=== PATIENT | female | born 1950 | race Caucasian/White ===

== ENCOUNTER 2020-07-31 08:39 | Outpatient (REF) | payer MEDICARE, SELFPAY ==
[2020-07-31 10:11] LABS: MANUAL DIFF FLAG NO
[2020-07-31 10:26] LABS: Basophils Percent Auto 0.6 % (0-2); Eosinophils Absolute Auto 0.2 X10*3/uL (0.0-0.4); Eosinophils Percent Auto 3.5 % (0-4); Hematocrit 32.5 % (37-47); Hemoglobin 9.6 g/dl (12.0-16.0); Imm Gran Abs Auto 0.02 X10*3/uL (0.00-0.03); Imm Gran Pct Auto 0.3 % (0.0-0.4); Lymphocytes Absolute Auto 1.4 X10*3/uL (1.2-4.9); Mean Corpuscular HGB Conc 29.5 g/dl (31.0-35.0); Mean Corpuscular Hemoglobin 27.1 pg (27.0-33.0); Mean Corpuscular Volume 91.8 fL (80-98); Mean Platelet Volume 10.2 fL (9.4-12.3); Monocytes Absolute Auto 0.6 X10*3/uL (0.1-1.2); Monocytes Percent Auto 8.7 % (2-11); Neutrophils Absolute Auto 4.6 X10*3/uL (2.0-8.3); Neutrophils Percent Auto 66.9 % (45-73); Platelet Count 256 X10*3/uL (160-400); Red Blood Count 3.54 X10*6/uL (4.20-5.50); Red Cell Distribution Width 14.3 % (11.0-16.0); White Blood Count 6.8 X10*3/uL (4.8-10.8)
[2020-07-31 10:36] LABS: Urine Cytology See Pathology rpt
[2020-07-31 10:55] LABS: Glucose Urine UA NEG (NEG); Leukocyte Esterase Urine TRACE (NEG); Nitrite Urine NEG (NEG); Urine Blood NEG (NEG); Urine Ketones NEG (NEG); Urine Protein NEG (NEG-TRACE)
[2020-07-31 10:58] LABS: Alanine Aminotransferase 11 U/L (0-31); Albumin Level 3.4 g/dL (3.5-5.0); Alkaline Phosphatase 68 U/L (39-117); Anion Gap 11 (12-20); Appearance Urine HAZY; Aspartate Amino Transferase 15 U/L (5-31); Bilirubin Total 0.4 mg/dL (0.0-1.0); Blood Urea Nitrogen 16 mg/dL (9-16); Calcium 8.3 mg/dL (8.4-10.2); Carbon Dioxide 29 mmol/L (22-29); Chloride 106 mmol/L (96-108); Cholesterol 208 mg/dL; Color Urine YELLOW; Estimated Glomerular Filt Rate > 60; Glucose Fasting 82 mg/dL (60-99); HDL Cholesterol 43 mg/dL; LDL Cholesterol Calculated 147 mg/dl; Potassium 4.5 mmol/l (3.3-5.1); Sodium 141 mmol/L (135-145); Total Protein 6.2 g/dL (6.5-8.0); Triglycerides 92 mg/dL
[2020-07-31 11:14] LABS: Bacteria Urine TRACE /LPF; RBC Urine 0-2 /HPF (0); Squamous Epithelial Cell Urine 1+ /LPF; WBC Urine 0-2 /HPF (0-4)
[2020-07-31 11:23] LABS: Free T4 (Free Thyroxine) 1.41 ng/dL (0.71-1.85); Thyroid Stimulating Hormone 0.76 uIU/mL (0.32-4.0); Vitamin D 25-OH Total 30.5 ng/mL (>30)
== END 2020-07-31 08:40 | disposition home or self-care (01) ==
LOC: HO.10HDL 08:39
PROVIDERS: Visit Provider Internal Medicine
DX: E78.5 Hyperlipidemia, unspecified (principal); E03.9 Hypothyroidism, unspecified; I49.9 Cardiac arrhythmia, unspecified; E66.3 Overweight; D64.9 Anemia, unspecified; R31.21 Asymptomatic microscopic hematuria; E55.9 Vitamin D deficiency, unspecified
CPT/HCPCS: 36415; 80053; 80061; 81001; 82306; 84439; 84443; 85025; 87086; 87147; 88112

== ENCOUNTER 2020-08-28 10:42 | Outpatient (REF) | payer MEDICARE, SELFPAY ==
--- NOTE | 2020-08-28 10:43 | XR_ITS ---
EXAMINATION: XR KNEE STANDING, BILATERAL XR KNEE, RIGHT CLINICAL INFORMATION: Pain. COMPARISON: None TECHNIQUE: AP bilateral knee. Right knee 2 views. FINDINGS: AP BILATERAL KNEE: There is loss of medial and lateral compartment joint space of both knees with meniscal calcification. There is mild periarticular spurring in the medial and lateral compartment of the left knee and lateral compartment of the right knee. No loose body seen. There is no fracture. RIGHT KNEE: There is subluxed patella laterally to the right with moderate lateral and suprapatellar spurring. There is minimal suprapatellar joint effusion. No loose body seen. XR/XR knee RT 2V IMPRESSION: Advanced degenerative arthritic changes in the tricompartments of the right knee with meniscal calcification. No loose bodies or fracture seen. Suspect small suprapatellar joint effusion. Moderate degenerative changes medial and lateral compartment left knee.
--- NOTE | 2020-08-28 10:43 | XR_ITS ---
EXAMINATION: XR KNEE STANDING, BILATERAL XR KNEE, RIGHT CLINICAL INFORMATION: Pain. COMPARISON: None TECHNIQUE: AP bilateral knee. Right knee 2 views. FINDINGS: AP BILATERAL KNEE: There is loss of medial and lateral compartment joint space of both knees with meniscal calcification. There is mild periarticular spurring in the medial and lateral compartment of the left knee and lateral compartment of the right knee. No loose body seen. There is no fracture. RIGHT KNEE: There is subluxed patella laterally to the right with moderate lateral and suprapatellar spurring. There is minimal suprapatellar joint effusion. No loose body seen. XR/XR knee standing BI IMPRESSION: Advanced degenerative arthritic changes in the tricompartments of the right knee with meniscal calcification. No loose bodies or fracture seen. Suspect small suprapatellar joint effusion. Moderate degenerative changes medial and lateral compartment left knee.
== END 2020-08-28 10:43 | disposition home or self-care (01) ==
LOC: HO.HOSX 10:42
PROVIDERS: PCP Internal Medicine; Referring Provider Internal Medicine; Visit Provider Orthopaedic Surgery
DX: M17.0 Bilateral primary osteoarthritis of knee (principal); M25.569 Pain in unspecified knee; M11.20 Other chondrocalcinosis, unspecified site
CPT/HCPCS: 20610; 73560; 73565; 99202; J1100

== ENCOUNTER 2020-09-21 10:23 | Outpatient (REF) | payer MEDICARE, SELFPAY ==
--- NOTE | 2020-09-21 10:27 | MM_ITS ---
EXAMINATION: MM SCREENING DIGITAL BREAST TOMOSYNTHESIS, BILATERAL CLINICAL INFORMATION: Screening. Asymptomatic. The lifetime risk of breast cancer based on the Tyrer-Cuzick Model is 6%. COMPARISON: Mammography: 09/17/2019, 09/11/2018, 08/28/2017 TECHNIQUE: Digital breast tomosynthesis is performed in both the craniocaudal and mediolateral oblique views along with computer-aided detection (CAD). Synthesized 2D images are generated from the tomosynthesis. FINDINGS: There are scattered areas of fibroglandular density (ACR BI-RADS breast composition Category b). There are no significant masses, abnormal calcifications, or other abnormalities. There is a stable 6 mm nodular asymmetry 6:00 left breast. A few scattered benign coarse calcifications are again seen in each breast. No significant changes. MM/MM tomosynthesis screening BI IMPRESSION: No significant changes from prior studies. ASSESSMENT: BI-RADS 2: Benign RECOMMENDATION: Routine annual mammography screening. This patient's information was entered into a reminder system with a target due date for their next mammogram.
== END 2020-09-21 10:24 | disposition home or self-care (01) ==
LOC: HO.MAMMO 10:23
PROVIDERS: PCP Internal Medicine; Visit Provider Internal Medicine
DX: Z12.31 Encounter for screening mammogram for malignant neoplasm of breast (principal)
CPT/HCPCS: 77063; 77067

== ENCOUNTER 2020-11-28 09:10 | Outpatient (REF) | payer MEDICARE, SELFPAY ==
[2020-11-28 10:13] LABS: MANUAL DIFF FLAG NO
[2020-11-28 10:17] LABS: Basophils Percent Auto 0.6 % (0-2); Eosinophils Absolute Auto 0.2 X10*3/uL (0.0-0.4); Eosinophils Percent Auto 3.8 % (0-4); Hematocrit 32.8 % (37-47); Hemoglobin 9.4 g/dl (12.0-16.0); Imm Gran Abs Auto 0.02 X10*3/uL (0.00-0.03); Imm Gran Pct Auto 0.3 % (0.0-0.4); Lymphocytes Absolute Auto 1.4 X10*3/uL (1.2-4.9); Lymphocytes Percent Auto 22.4 % (20-40); Mean Corpuscular HGB Conc 28.7 g/dl (31.0-35.0); Mean Corpuscular Hemoglobin 24.5 pg (27.0-33.0); Mean Corpuscular Volume 85.4 fL (80-98); Mean Platelet Volume 10.3 fL (9.4-12.3); Monocytes Absolute Auto 0.6 X10*3/uL (0.1-1.2); Monocytes Percent Auto 9.1 % (2-11); Neutrophils Percent Auto 63.8 % (45-73); Platelet Count 251 X10*3/uL (160-400); Red Blood Count 3.84 X10*6/uL (4.20-5.50); Red Cell Distribution Width 16.7 % (11.0-16.0); White Blood Count 6.2 X10*3/uL (4.8-10.8)
[2020-11-28 10:39] LABS: Glucose Urine UA NEG (NEG); Leukocyte Esterase Urine TRACE (NEG); Nitrite Urine NEG (NEG); PH 6.5 (5.0-8.0); UACC Culture Trigger YES; Urine Blood NEG (NEG); Urine Ketones NEG (NEG); Urine Protein NEG (NEG-TRACE)
[2020-11-28 10:43] LABS: Appearance Urine HAZY; Color Urine YELLOW
[2020-11-28 10:48] LABS: Alanine Aminotransferase 13 U/L (0-31); Albumin Level 3.5 g/dL (3.5-5.0); Alkaline Phosphatase 71 U/L (39-117); Anion Gap 11 (12-20); Aspartate Amino Transferase 16 U/L (5-31); Bilirubin Total 0.3 mg/dL (0.0-1.0); Blood Urea Nitrogen 19 mg/dL (9-16); Calcium 8.6 mg/dL (8.4-10.2); Carbon Dioxide 29 mmol/L (22-29); Chloride 108 mmol/L (96-108); Cholesterol 222 mg/dL; Estimated Glomerular Filt Rate > 60; Glucose Fasting 90 mg/dL (60-99); HDL Cholesterol 41 mg/dL; LDL Cholesterol Calculated 157 mg/dl; Potassium 4.5 mmol/L (3.3-5.1); Sodium 143 mmol/L (135-145); Total Protein 6.3 g/dL (6.5-8.0); Triglycerides 123 mg/dL
[2020-11-28 11:04] LABS: Erythrocyte Sedimentation Rate 39 MM/HR (0-20)
[2020-11-28 11:11] LABS: Free T4 (Free Thyroxine) 1.22 ng/dL (0.71-1.85); Thyroid Stimulating Hormone 0.73 uIU/mL (0.32-4.0); Vitamin D 25-OH Total 27.5 ng/mL (>30)
[2020-11-28 11:40] LABS: Bacteria Urine 1+ /LPF; RBC Urine 0 /HPF (0); Squamous Epithelial Cell Urine 2+ /LPF; WBC Urine 0-2 /HPF (0-4)
== END 2020-11-28 09:11 | disposition home or self-care (01) ==
LOC: HO.10HDL 09:10
PROVIDERS: Visit Provider Internal Medicine
DX: I49.9 Cardiac arrhythmia, unspecified (principal); E78.00 Pure hypercholesterolemia, unspecified; M17.11 Unilateral primary osteoarthritis, right knee; E03.9 Hypothyroidism, unspecified; E66.3 Overweight; E55.9 Vitamin D deficiency, unspecified
CPT/HCPCS: 36415; 80053; 80061; 81001; 81003; 82306; 84439; 84443; 85025; 85652; 87086; 87147

== ENCOUNTER 2021-04-04 08:57 | Outpatient (REF) | payer MEDICARE, SELFPAY ==
[2021-04-04 10:06] LABS: MANUAL DIFF FLAG NO
[2021-04-04 10:14] LABS: Basophils Percent Auto 0.4 % (0-2); Eosinophils Absolute Auto 0.3 X10*3/uL (0.0-0.4); Eosinophils Percent Auto 4.5 % (0-4); Hematocrit 40.7 % (37-47); Hemoglobin 12.6 g/dl (12.0-16.0); Imm Gran Abs Auto 0.01 X10*3/uL (0.00-0.03); Imm Gran Pct Auto 0.1 % (0.0-0.4); Lymphocytes Absolute Auto 1.2 X10*3/uL (1.2-4.9); Lymphocytes Percent Auto 17.8 % (20-40); Mean Corpuscular Hemoglobin 30.1 pg (27.0-33.0); Mean Corpuscular Volume 97.1 fL (80-98); Mean Platelet Volume 10.3 fL (9.4-12.3); Monocytes Absolute Auto 0.6 X10*3/uL (0.1-1.2); Monocytes Percent Auto 8.8 % (2-11); Neutrophils Absolute Auto 4.6 X10*3/uL (2.0-8.3); Neutrophils Percent Auto 68.4 % (45-73); Platelet Count 210 X10*3/uL (160-400); Red Blood Count 4.19 X10*6/uL (4.20-5.50); Red Cell Distribution Width 13.5 % (11.0-16.0); White Blood Count 6.7 X10*3/uL (4.8-10.8)
[2021-04-04 10:17] LABS: Glucose Urine UA NEG (NEG); Leukocyte Esterase Urine 2+ (NEG); Nitrite Urine NEG (NEG); Specific Gravity - Urine 1.025 (1.005-1.025); UACC Culture Trigger YES; Urine Blood TRACE (NEG); Urine Ketones NEG (NEG); Urine Protein NEG (NEG-TRACE)
[2021-04-04 10:19] LABS: Appearance Urine HAZY; Color Urine YELLOW
[2021-04-04 10:55] LABS: Alanine Aminotransferase 9 U/L (0-31); Albumin Level 3.5 g/dL (3.5-5.0); Alkaline Phosphatase 65 U/L (39-117); Anion Gap 12 (12-20); Aspartate Amino Transferase 14 U/L (5-31); Bilirubin Total 0.5 mg/dL (0.0-1.0); Blood Urea Nitrogen 19 mg/dL (9-16); Carbon Dioxide 28 mmol/L (22-29); Chloride 107 mmol/L (96-108); Cholesterol 203 mg/dL; Estimated Glomerular Filt Rate > 60; Glucose Fasting 90 mg/dL (60-99); HDL Cholesterol 40 mg/dL; Iron 52 mcg/dL (30-160); LDL Cholesterol Calculated 142 mg/dl; Percent Iron Saturation 21 % (15-50); Potassium 4.2 mmol/L (3.3-5.1); Sodium 143 mmol/L (135-145); Total Iron Binding Capacity 242 mcg/dL (228-428); Total Protein 6.2 g/dL (6.5-8.0); Triglycerides 109 mg/dL; Unsaturated Iron Binding 190 ug/dL
[2021-04-04 11:05] LABS: Bacteria Urine 1+ /LPF; RBC Urine 0-2 /HPF (0); Squamous Epithelial Cell Urine 2+ /LPF; WBC Urine 0-2 /HPF (0-4)
[2021-04-04 11:09] LABS: Erythrocyte Sedimentation Rate 28 MM/HR (0-20)
[2021-04-04 11:10] LABS: Free T4 (Free Thyroxine) 1.44 ng/dL (0.71-1.85); Thyroid Stimulating Hormone 0.82 uIU/mL (0.32-4.0); Vitamin D 25-OH Total 28.6 ng/mL (>30)
== END 2021-04-04 08:58 | disposition home or self-care (01) ==
LOC: HO.10HDL 08:57
PROVIDERS: Visit Provider Internal Medicine
DX: I49.9 Cardiac arrhythmia, unspecified (principal); D64.9 Anemia, unspecified; E78.00 Pure hypercholesterolemia, unspecified; E55.9 Vitamin D deficiency, unspecified; R03.0 Elevated blood-pressure reading, without diagnosis of hypertension; M17.11 Unilateral primary osteoarthritis, right knee; M25.571 Pain in right ankle and joints of right foot; E03.9 Hypothyroidism, unspecified; E66.3 Overweight
CPT/HCPCS: 36415; 80053; 80061; 81001; 81003; 82306; 83540; 84439; 84443; 85025; 85652; 87086; 87147

== ENCOUNTER 2021-04-26 08:29 | Outpatient (REF) | payer MEDICARE, SELFPAY ==
--- NOTE | ~2021-04-26 | XR_ITS ---
EXAMINATION: BILATERAL KNEE STANDING. LEFT KNEE: CLINICAL INFORMATION: Pain. COMPARISON: None TECHNIQUE: Bilateral knees standing. Left knee 2 views. FINDINGS: AP bilateral knee: There is a loss of medial and lateral compartment joints is both knees with moderate periapical spurring and chondrocalcinosis medial and lateral compartments. 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 There are no loose bodies or bony erosive changes XR/XR knee standing BI IMPRESSION: Tricompartment joint space narrowing. No visible acute fracture, dislocation or subluxation seen. There is mild superior joint effusion. There is chondrocalcinosis of medial and lateral compartment. There is mild suprapatellar joint effusion.
--- NOTE | ~2021-04-26 | XR_ITS ---
EXAMINATION: BILATERAL KNEE STANDING. LEFT KNEE: CLINICAL INFORMATION: Pain. COMPARISON: None TECHNIQUE: Bilateral knees standing. Left knee 2 views. FINDINGS: AP bilateral knee: There is a loss of medial and lateral compartment joints is both knees with moderate periapical spurring and chondrocalcinosis medial and lateral compartments. 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 There are no loose bodies or bony erosive changes XR/XR knee LT 2V IMPRESSION: Tricompartment joint space narrowing. No visible acute fracture, dislocation or subluxation seen. There is mild superior joint effusion. There is chondrocalcinosis of medial and lateral compartment. There is mild suprapatellar joint effusion.
== END 2021-04-26 08:30 | disposition home or self-care (01) ==
LOC: HO.HOSX 08:29
PROVIDERS: Visit Provider Orthopaedic Surgery
DX: M11.20 Other chondrocalcinosis, unspecified site (principal); M17.12 Unilateral primary osteoarthritis, left knee
CPT/HCPCS: 20610; 73560; 73565; 99212; J1100

== ENCOUNTER 2021-09-24 09:44 | Outpatient (REF) | payer MEDICARE, SELFPAY ==
--- NOTE | ~2021-09-24 | MM_ITS ---
EXAMINATION: MM SCREENING DIGITAL BREAST TOMOSYNTHESIS, BILATERAL CLINICAL INFORMATION: Screening. Asymptomatic. The lifetime risk of breast cancer based on the Tyrer-Cuzick Model is 7%. COMPARISON: Mammography: 09/21/2020, 09/17/2019, 09/11/2018 TECHNIQUE: Digital breast tomosynthesis is performed in both the craniocaudal and mediolateral oblique views along with computer-aided detection (CAD). Synthesized 2D images are generated from the tomosynthesis. FINDINGS: There are scattered areas of fibroglandular density (ACR BI-RADS breast composition Category b). There are no significant masses, abnormal calcifications, or other abnormalities. Parenchymal pattern is similar to prior studies. No developing density. Small nodular asymmetry mid inferior left breast on MLO view is stable to decreased. The axilla and skin contours are unremarkable. MM/MM tomosynthesis screening BI IMPRESSION: No mammographic evidence of malignancy. ASSESSMENT: BI-RADS 2: Benign RECOMMENDATION: Routine annual mammography screening. This patient's information was entered into a reminder system with a target due date for their next mammogram.
== END 2021-09-24 09:45 | disposition home or self-care (01) ==
LOC: HO.MAMMO 09:44
PROVIDERS: Visit Provider Internal Medicine
DX: Z12.31 Encounter for screening mammogram for malignant neoplasm of breast (principal)
CPT/HCPCS: 77063; 77067

== ENCOUNTER 2021-10-29 10:03 | Outpatient (REF) | payer MEDICARE, SELFPAY ==
[2021-10-29 10:27] LABS: MANUAL DIFF FLAG NO
[2021-10-29 10:44] LABS: Basophils Percent Auto 0.6 % (0-2); Eosinophils Absolute Auto 0.2 X10*3/uL (0.0-0.4); Hematocrit 40.4 % (37.0-47.0); Hemoglobin 12.3 g/dl (12.0-16.0); Imm Gran Abs Auto 0.02 X10*3/uL (0.00-0.03); Imm Gran Pct Auto 0.3 % (0.0-0.4); Lymphocytes Absolute Auto 1.1 X10*3/uL (1.2-4.9); Lymphocytes Percent Auto 15.8 % (20-40); Mean Corpuscular HGB Conc 30.4 g/dl (31.0-35.0); Mean Corpuscular Hemoglobin 29.9 pg (27.0-33.0); Mean Corpuscular Volume 98.3 fL (80.0-98.0); Mean Platelet Volume 9.9 fL (9.4-12.3); Monocytes Absolute Auto 0.6 X10*3/uL (0.1-1.2); Monocytes Percent Auto 8.3 % (2-11); Neutrophils Absolute Auto 4.9 x10*3/uL (2.0-8.3); Platelet Count 206 X10*3/uL (160-400); Red Blood Count 4.11 X10*6/uL (4.20-5.50); Red Cell Distribution Width 13.7 % (11.0-16.0); White Blood Count 6.8 X10*3/uL (4.8-10.8)
[2021-10-29 11:19] LABS: Free T4 (Free Thyroxine) 1.16 ng/dL (0.71-1.85); Vitamin D 25-OH Total 26.1 ng/mL (>30)
[2021-10-29 11:36] LABS: Alanine Aminotransferase 12 U/L (0-31); Albumin Level 3.6 g/dL (3.5-5.0); Alkaline Phosphatase 66 U/L (39-117); Anion Gap 9 (12-20); Aspartate Amino Transferase 16 U/L (5-31); Bilirubin Total 0.5 mg/dL (0.0-1.0); Blood Urea Nitrogen 14 mg/dL (9-16); Carbon Dioxide 30 mmol/L (22-29); Chloride 107 mmol/L (96-108); Cholesterol 236 mg/dL; Estimated Glomerular Filt Rate > 60; Glucose Fasting 88 mg/dL (60-99); HDL Cholesterol 41 mg/dL; LDL Cholesterol Calculated 175 mg/dl; Potassium 4.1 mmol/L (3.3-5.1); Sodium 142 mmol/L (135-145); Total Protein 6.5 g/dL (6.5-8.0); Triglycerides 100 mg/dL
[2021-10-29 12:19] LABS: Uric Acid 4.9 mg/dL (2.4-5.7)
== END 2021-10-29 10:04 | disposition home or self-care (01) ==
LOC: HO.10HDL 10:03
PROVIDERS: Visit Provider Internal Medicine
DX: E78.00 Pure hypercholesterolemia, unspecified (principal); E03.9 Hypothyroidism, unspecified; E55.9 Vitamin D deficiency, unspecified; I10 Essential (primary) hypertension; M10.9 Gout, unspecified
CPT/HCPCS: 36415; 80053; 80061; 82306; 84439; 84443; 84550; 85025

== ENCOUNTER → 2022-06-03 11:05 | Outpatient (BNVA) | payer MEDICARE, SELFPAY | PROVIDERS: PCP Internal Medicine; Visit Provider Orthopaedic Surgery | DX: M11.261 Other chondrocalcinosis, right knee (principal); M17.11 Unilateral primary osteoarthritis, right knee | CPT/HCPCS: 20610; 99212; J1100 ==

== ENCOUNTER 2022-06-05 09:52 | Outpatient (REF) | payer MEDICARE, SELFPAY ==
[2022-06-05 10:22] LABS: MANUAL DIFF FLAG NO
[2022-06-05 10:43] LABS: Basophils Absolute Auto 0.1 X10*3/uL (0.0-0.2); Basophils Percent Auto 0.9 % (0-2); Eosinophils Absolute Auto 0.3 X10*3/uL (0.0-0.4); Hematocrit 39.4 % (37.0-47.0); Hemoglobin 12.2 g/dl (12.0-16.0); Imm Gran Abs Auto 0.03 X10*3/uL (0.00-0.03); Imm Gran Pct Auto 0.4 % (0.0-0.4); Lymphocytes Absolute Auto 1.7 X10*3/uL (1.2-4.9); Lymphocytes Percent Auto 23.1 % (20-40); Mean Platelet Volume 10.2 fL (9.4-12.3); Monocytes Absolute Auto 0.7 X10*3/uL (0.1-1.2); Monocytes Percent Auto 9.5 % (2-11); Neutrophils Absolute Auto 4.6 x10*3/uL (2.0-8.3); Neutrophils Percent Auto 62.1 % (45-73); Platelet Count 248 X10*3/uL (160-400); Red Blood Count 4.06 X10*6/uL (4.20-5.50); White Blood Count 7.4 X10*3/uL (4.8-10.8)
[2022-06-05 11:05] LABS: Alanine Aminotransferase 15 U/L (0-31); Albumin Level 3.6 g/dL (3.5-5.0); Alkaline Phosphatase 59 U/L (39-117); Anion Gap 14 (12-20); Aspartate Amino Transferase 17 U/L (5-31); Bilirubin Total 0.4 mg/dL (0.0-1.0); Blood Urea Nitrogen 21 mg/dL (9-16); Carbon Dioxide 27 mmol/L (22-29); Chloride 105 mmol/L (96-108); Cholesterol 220 mg/dL; Estimated Glomerular Filt Rate > 60; Glucose Fasting 78 mg/dL (60-99); HDL Cholesterol 41 mg/dL; LDL Cholesterol Calculated 153 mg/dl; Potassium 4.2 mmol/L (3.3-5.1); Sodium 142 mmol/L (135-145); Total Protein 6.6 g/dL (6.5-8.0); Triglycerides 130 mg/dL
[2022-06-05 11:19] LABS: TSH reflex Free T4 3.31 uIU/mL (0.32-4.0)
[2022-06-10 16:06] LABS: Vitamin D 25-OH, D2 <4 ng/mL; Vitamin D 25-OH, D3 27 ng/mL; Vitamin D 25-OH, Total 27 ng/mL (30-100)
== END 2022-06-05 09:53 | disposition home or self-care (01) ==
LOC: HO.10HDL 09:52
PROVIDERS: Visit Provider Nurse Practitioner Family
DX: D64.9 Anemia, unspecified (principal); E03.9 Hypothyroidism, unspecified; E55.9 Vitamin D deficiency, unspecified; E78.00 Pure hypercholesterolemia, unspecified; I10 Essential (primary) hypertension
CPT/HCPCS: 36415; 80053; 80061; 82306; 84443; 85025

== ENCOUNTER 2022-09-25 09:57 | Outpatient (REF) | payer MEDICARE, SELFPAY ==
--- NOTE | ~2022-09-25 | MM_ITS ---
EXAMINATION: MM SCREENING DIGITAL BREAST TOMOSYNTHESIS, BILATERAL CLINICAL INFORMATION: Screening. Asymptomatic. Family history breast cancer, daughter. The lifetime risk of breast cancer based on the Tyrer-Cuzick Model is 3%. COMPARISON: Mammography: 09/24/2021, 09/21/2020, 09/17/2019 TECHNIQUE: Digital breast tomosynthesis is performed in both the craniocaudal and mediolateral oblique views along with computer-aided detection (CAD). Synthesized 2D images are generated from the tomosynthesis. FINDINGS: There are scattered areas of fibroglandular density (ACR BI-RADS breast composition Category b). There are no significant masses, abnormal calcifications, or other abnormalities. Parenchymal pattern is similar to prior studies. There is no developing density or architectural abnormality. The axilla and skin contours are unremarkable. No significant changes. MM/MM tomosynthesis screening BI IMPRESSION: No mammographic evidence of malignancy. ASSESSMENT: BI-RADS 2: Benign RECOMMENDATION: Routine annual mammography screening. This patient's information was entered into a reminder system with a target due date for their next mammogram.
== END 2022-09-25 09:58 | disposition home or self-care (01) ==
LOC: HO.MAMMO 09:57
PROVIDERS: PCP Internal Medicine; Visit Provider Internal Medicine
DX: Z12.31 Encounter for screening mammogram for malignant neoplasm of breast (principal)
CPT/HCPCS: 77063; 77067

== ENCOUNTER 2022-10-08 09:10 | Outpatient (REF) | payer MEDICARE, SELFPAY ==
[2022-10-08 10:31] LABS: MANUAL DIFF FLAG NO
[2022-10-08 10:35] LABS: Basophils Absolute Auto 0.1 X10*3/uL (0.0-0.2); Basophils Percent Auto 0.8 % (0-2); Eosinophils Absolute Auto 0.3 X10*3/uL (0.0-0.4); Eosinophils Percent Auto 3.8 % (0-4); Hematocrit 39.6 % (37.0-47.0); Hemoglobin 12.3 g/dl (12.0-16.0); Imm Gran Abs Auto 0.01 X10*3/uL (0.00-0.03); Imm Gran Pct Auto 0.2 % (0.0-0.4); Lymphocytes Absolute Auto 1.2 X10*3/uL (1.2-4.9); Lymphocytes Percent Auto 18.1 % (20-40); Mean Corpuscular HGB Conc 31.1 g/dl (31.0-35.0); Mean Corpuscular Hemoglobin 30.8 pg (27.0-33.0); Mean Corpuscular Volume 99.2 fL (80.0-98.0); Mean Platelet Volume 10.1 fL (9.4-12.3); Monocytes Absolute Auto 0.5 X10*3/uL (0.1-1.2); Neutrophils Absolute Auto 4.6 x10*3/uL (2.0-8.3); Neutrophils Percent Auto 69.1 % (45-73); Platelet Count 212 X10*3/uL (160-400); Red Blood Count 3.99 X10*6/uL (4.20-5.50); Red Cell Distribution Width 14.6 % (11.0-16.0); White Blood Count 6.6 X10*3/uL (4.8-10.8)
[2022-10-08 11:00] LABS: Alanine Aminotransferase 15 U/L (0-31); Albumin Level 3.6 g/dL (3.5-5.0); Alkaline Phosphatase 65 U/L (39-117); Anion Gap 9 (12-20); Aspartate Amino Transferase 18 U/L (5-31); Bilirubin Total 0.5 mg/dL (0.0-1.0); Blood Urea Nitrogen 18 mg/dL (9-16); Calcium 8.7 mg/dL (8.4-10.2); Carbon Dioxide 30 mmol/L (22-29); Chloride 105 mmol/L (96-108); Cholesterol 211 mg/dL; Estimated Glomerular Filt Rate > 60; Glucose Fasting 84 mg/dL (60-99); HDL Cholesterol 42 mg/dL; LDL Cholesterol Calculated 139 mg/dl; Potassium 4.1 mmol/L (3.3-5.1); Sodium 140 mmol/L (135-145); Total Protein 6.3 g/dL (6.5-8.0); Triglycerides 154 mg/dL
[2022-10-08 11:05] LABS: Free T4 (Free Thyroxine) 1.14 ng/dL (0.71-1.85); Thyroid Stimulating Hormone 8.43 uIU/mL (0.32-4.0)
[2022-10-08 14:07] LABS: Appearance Urine Clear; Color Urine Yellow; Glucose Urine UA Negative (Negative); Leukocyte Esterase Urine Small (1+) (Negative); Nitrite Urine Negative (Negative); PH 6.5 (5.0-9.0); UMIC TRIGGER UACC YES; Urine Blood Negative (Negative); Urine Ketones Negative (Negative); Urine Protein Negative (Neg-Trace)
[2022-10-08 14:27] LABS: Bacteria Urine None Seen (None Seen); Hyaline Casts Urine 0-2 /LPF (0-2); RBC Urine 0-2 /HPF (0-2); UACC Culture Trigger YES; WBC Urine 0-5 /HPF (0-5)
== END 2022-10-08 09:11 | disposition home or self-care (01) ==
LOC: HO.10HDL 09:10
PROVIDERS: Visit Provider Internal Medicine
DX: E03.9 Hypothyroidism, unspecified (principal); E55.9 Vitamin D deficiency, unspecified; I10 Essential (primary) hypertension; E78.00 Pure hypercholesterolemia, unspecified
CPT/HCPCS: 36415; 80053; 80061; 81001; 81003; 82306; 84439; 84443; 85025; 87086

== ENCOUNTER 2023-02-18 09:54 | Outpatient (REF) | payer MEDICARE, SELFPAY ==
[2023-02-18 10:42] LABS: Appearance Urine Cloudy; Color Urine Yellow; Glucose Urine UA Negative (Negative); Leukocyte Esterase Urine Moderate (2+) (Negative); Nitrite Urine Negative (Negative); PH 6.5 (5.0-9.0); UMIC TRIGGER UACC YES; Urine Blood Trace (Negative); Urine Ketones Negative (Negative); Urine Protein 30 (1+) mg/dL (Neg-Trace)
[2023-02-18 10:44] LABS: Bacteria Urine 1+ (None Seen); Hyaline Casts Urine 0-2 /LPF (0-2); MANUAL DIFF FLAG NO; UACC Culture Trigger YES
[2023-02-18 10:54] LABS: Basophils Percent Auto 0.4 % (0-2); Eosinophils Absolute Auto 0.4 X10*3/uL (0.0-0.4); Eosinophils Percent Auto 5.1 % (0-4); Hematocrit 40.9 % (37.0-47.0); Hemoglobin 12.8 g/dl (12.0-16.0); Imm Gran Abs Auto 0.02 X10*3/uL (0.00-0.03); Imm Gran Pct Auto 0.3 % (0.0-0.4); Lymphocytes Percent Auto 13.9 % (20-40); Mean Corpuscular HGB Conc 31.3 g/dl (31.0-35.0); Mean Platelet Volume 10.4 fL (9.4-12.3); Monocytes Absolute Auto 0.5 X10*3/uL (0.1-1.2); Monocytes Percent Auto 7.6 % (2-11); Neutrophils Absolute Auto 5.2 x10*3/uL (2.0-8.3); Neutrophils Percent Auto 72.7 % (45-73); Platelet Count 195 X10*3/uL (160-400); Red Blood Count 4.13 X10*6/uL (4.20-5.50); Red Cell Distribution Width 14.3 % (11.0-16.0); White Blood Count 7.1 X10*3/uL (4.8-10.8)
[2023-02-18 12:42] LABS: Alanine Aminotransferase 11 U/L (0-31); Albumin Level 3.4 g/dL (3.5-5.0); Alkaline Phosphatase 61 U/L (39-117); Anion Gap 14 (12-20); Aspartate Amino Transferase 15 U/L (5-31); Bilirubin Total 0.6 mg/dL (0.0-1.0); Blood Urea Nitrogen 12 mg/dL (9-16); Calcium 8.7 mg/dL (8.4-10.2); Carbon Dioxide 26 mmol/L (22-29); Chloride 107 mmol/L (96-108); Cholesterol 231 mg/dL; Estimated Glomerular Filt Rate > 60; Glucose Fasting 78 mg/dL (60-99); HDL Cholesterol 43 mg/dL; LDL Cholesterol Calculated 173 mg/dl; Potassium 4.1 mmol/L (3.3-5.1); Sodium 143 mmol/L (135-145); Total Protein 6.3 g/dL (6.5-8.0); Triglycerides 77 mg/dL
[2023-02-18 12:52] LABS: Free T4 (Free Thyroxine) 1.08 ng/dL (0.71-1.85); Thyroid Stimulating Hormone 13.52 uIU/mL (0.32-4.0); Vitamin D 25-OH Total 34.1 ng/mL (>30)
== END 2023-02-18 09:55 | disposition home or self-care (01) ==
LOC: HO.10HDL 09:54
PROVIDERS: Visit Provider Internal Medicine
DX: E03.9 Hypothyroidism, unspecified (principal); E55.9 Vitamin D deficiency, unspecified; I10 Essential (primary) hypertension; E78.00 Pure hypercholesterolemia, unspecified; R82.90 Unspecified abnormal findings in urine
CPT/HCPCS: 36415; 80053; 80061; 81001; 82306; 84439; 84443; 85025; 87086

== ENCOUNTER 2023-09-03 08:12 | Outpatient (REF) | payer MEDICARE, SELFPAY ==
[2023-09-03 10:20] LABS: MANUAL DIFF FLAG NO
[2023-09-03 10:31] LABS: Basophils Absolute Auto 0.1 X10*3/uL (0.0-0.2); Basophils Percent Auto 0.7 % (0-2); Eosinophils Absolute Auto 0.3 X10*3/uL (0.0-0.4); Eosinophils Percent Auto 4.5 % (0-4); Hematocrit 41.6 % (37.0-47.0); Imm Gran Abs Auto 0.02 X10*3/uL (0.00-0.03); Imm Gran Pct Auto 0.3 % (0.0-0.4); Lymphocytes Absolute Auto 1.2 X10*3/uL (1.2-4.9); Mean Corpuscular HGB Conc 31.3 g/dl (31.0-35.0); Mean Corpuscular Hemoglobin 31.8 pg (27.0-33.0); Mean Corpuscular Volume 101.7 fL (80.0-98.0); Mean Platelet Volume 10.2 fL (9.4-12.3); Monocytes Absolute Auto 0.5 X10*3/uL (0.1-1.2); Monocytes Percent Auto 7.9 % (2-11); Neutrophils Absolute Auto 4.7 x10*3/uL (2.0-8.3); Neutrophils Percent Auto 68.6 % (45-73); Platelet Count 244 X10*3/uL (160-400); Red Blood Count 4.09 X10*6/uL (4.20-5.50); Red Cell Distribution Width 13.4 % (11.0-16.0); White Blood Count 6.9 X10*3/uL (4.8-10.8)
[2023-09-03 10:32] LABS: Appearance Urine Cloudy; Color Urine Yellow; Glucose Urine UA Negative (Negative); Leukocyte Esterase Urine Small (1+) (Negative); Nitrite Urine Negative (Negative); UMIC TRIGGER UACC YES; Urine Blood Trace (Negative); Urine Ketones Negative (Negative); Urine Protein Trace mg/dL (Neg-Trace)
[2023-09-03 10:54] LABS: Bacteria Urine None Seen (None Seen); Hyaline Casts Urine 0-2 /LPF (0-2); RBC Urine 0-2 /HPF (0-2); UACC Culture Trigger YES
[2023-09-03 10:56] LABS: Alanine Aminotransferase 7 U/L (0-31); Albumin Level 3.6 g/dL (3.5-5.0); Alkaline Phosphatase 65 U/L (39-117); Anion Gap 12 (12-20); Aspartate Amino Transferase 14 U/L (5-31); Bilirubin Total 0.4 mg/dL (0.0-1.0); Blood Urea Nitrogen 14 mg/dL (9-16); Calcium 9.2 mg/dL (8.4-10.2); Carbon Dioxide 29 mmol/L (22-29); Chloride 105 mmol/L (96-108); Cholesterol 228 mg/dL (<200); Estimated Glomerular Filt Rate > 60; Glucose Fasting 93 mg/dL (60-99); HDL Cholesterol 42 mg/dL (>40); LDL Cholesterol Calculated 162 mg/dL (<100); Potassium 3.8 mmol/L (3.3-5.1); Sodium 142 mmol/L (135-145); Total Protein 7.2 g/dL (6.5-8.0); Triglycerides 120 mg/dL (<150)
[2023-09-03 11:18] LABS: Free T4 (Free Thyroxine) 0.76 ng/dL (0.71-1.85); Thyroid Stimulating Hormone 34.35 uIU/mL (0.32-4.0); Vitamin D 25-OH Total 30.3 ng/mL (>30)
[2023-09-03 11:21] LABS: Folate 12.7 ng/mL (> or = 4.0); Vitamin B12 485 pg/mL (200-900)
[2023-09-04 09:18] LABS: Thyroid Peroxidase Antibodies 12 IU/mL (<9)
== END 2023-09-03 08:13 | disposition home or self-care (01) ==
LOC: HO.10HDL 08:12
PROVIDERS: Visit Provider Internal Medicine
DX: E53.8 Deficiency of other specified B group vitamins (principal); E03.9 Hypothyroidism, unspecified; R79.89 Other specified abnormal findings of blood chemistry; E78.00 Pure hypercholesterolemia, unspecified; E55.9 Vitamin D deficiency, unspecified; I10 Essential (primary) hypertension; R30.0 Dysuria
CPT/HCPCS: 36415; 80053; 80061; 81001; 82306; 82607; 82746; 84439; 84443; 85025; 86376; 87086; 87147

== ENCOUNTER 2023-09-09 16:57 | Outpatient (AMB) | payer MEDICARE, SELFPAY ==
[2023-09-09 17:02] VITALS: BP 164/92; PULSE 47; O2SAT 94; BMI 28.3
--- NOTE | 2023-09-09 17:02 | MHC.PC.OV ---
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: No Accompanied by: Self / Same As Patient Allergies Sulfa (Sulfonamide Antibiotics) (SULFA(SULFONAMIDE ANTIBIOTICS)) Allergy (Unknown, Verified 10/11/24 10:48) UNKNOWN Medication List - Last Reconciled 09/09/23 by Yuri Mcgrath MD atenolol 25 mg PO DAILY cholecalciferol (vitamin D3) 25 mcg PO DAILY ferrous sulfate (Feosol) 325 mg PO BID 90 days levothyroxine (Euthyrox) 100 mcg PO QAM magnesium 400 mg PO DAILY mecobalamin (vitamin B12) 1,000 mcg PO DAILY oxybutynin chloride ER 10 mg PO DAILY 30 days Tobacco use date assessed: 09/09/23 Fall risk assessment: No Falls in past year Last assessed Fall Risk: 09/09/23 Dental Screening Dental Screen Date: 09/09/23 Did you have a dental visit in the last 12 months?: Yes Did you have a dental problem in the last 6 months where you did not have access to dental care?: No Was dental information given to patient?: Patient has dentist HPI Physical exam HPI Details Patient comes in today for her annual physical examination States that she feels okay She denies any headaches or dizziness Denies any chest pains, no SOB No nausea/vomiting, no abdominal pain No change in bowel habits noted Denies any acute urinary symptoms Had her follow up labs done last week - to discuss her results Had her annual mammogram last done on 09/25/22; her next one is scheduled on 10/02/23 She has declined colonoscopy in the past but had a negative Cologuard back on 08/22/2020 and states that she just had a repeat Cologuard done a couple of weeks ago - test was reportedly negative as well She no longer keeps up with her annual pap smear and gynecology exam, based on her age PFSH Medical History Rah's thyroiditis Overactive bladder Vitamin D deficiency Anemia Pain in right ankle and joints of right foot Elevated blood pressure reading Overweight (BMI 25.0-29.9) Primary osteoarthritis of right knee Cardiac arrhythmia Acquired hypothyroidism Pure hypercholesterolemia Surgical History History of cataract surgery Family History Father Cancer Daughter Breast cancer Social History Housing: House Alcohol intake: never Patient Tobacco Use Status: Never used Tobacco e-Cigarette/Vaping Use: Never Used Second Hand Smoke Exposure: Yes service: No Current occupational status: retired Cognitive needs: No Hearing needs: No Vision needs: Yes (Glasses) Questionnaire PHQ-9 Over the last 2 weeks, how often have you been bothered by any of the following problems? 1. Little interest or pleasure in doing things: not at all 2. Feeling down, depressed, or hopeless: not at all 3. Trouble falling or staying asleep, or sleeping too much: not at all 4. Feeling tired or having little energy: not at all 5. Poor appetite or overeating: not at all 6. Feeling bad about yourself - or that you are a failure or have let yourself or your family down: not at all 7. Trouble concentrating on things, such as reading the newspaper or watching television: not at all 8. Moving or speaking so slowly that other people could have noticed. Or the opposite - being so fidgety or restless that you have been moving around a lot more than usual: not at all 9. Thoughts that you would be better off or of hurting yourself in some way: not at all Total score: 0 Depression Screening Interpretation: Negative Depression Screening Done: Yes 12904 - PHQ-9 Billing: Yes Source: Developed by Drs. Marv Yao, Dolores Escalante, Joseph Adams and colleagues, with an educational keshav from [employer]. Thrive Questionnaire Date Thrive assessed: 09/09/23 I am a: Patient What is your living situation today?: I have a steady place to live Within the past 12 months, did the food you bought not last and you didn't have the money to get more?: Never true Within the past 12 months, did you worry whether your food would run out before you got money to buy more?: Never true Do you have trouble paying for medicines?: No Do you have trouble getting transportation to medical appointments?: No Do you have trouble paying your heating and electricity bill?: No Do you have trouble taking care of your child, family member or friend?: No Do you have trouble with day-to-day activities such as bathing, preparing meals, shopping, managing finances, etc.?: No Are you currently unemployed and looking for a job?: No Are you interested in more education?: No Please select the resources that you would like help with: None Currently or been in a relationship where the following occur: no concerns reported AUDIT C Alcohol Use Questionnaire (AUDIT-C) 1. How often do you have a drink containing alcohol?: Never 3. How often do you have six or more drinks on one occasion?: Never Total Score: 0 Score Reviewed/Action Taken: Yes BHAVANI-7 AMB Questionnaire BHAVANI-7 Date BHAVANI - 7 assessed: 02/25/23 Source: Developed by Drs. Marv Yao, Dolores Escalante, Joseph Adams and colleagues, with an educational keshav from [employer]. Review of Systems Const Denies chills, Denies fatigue, Denies fever(s) and Denies headache(s) Eyes Denies blurry vision, Denies change in vision, Denies irritation and Denies itchy eyes ENT Denies dysphagia, Denies dizziness, Denies headache(s), Denies neck pain and Denies sore throat Card Denies chest pain, Denies palpitations and Denies dyspnea Resp Denies cough, Denies dyspnea and Denies wheezing GI Denies abdominal pain, Denies constipation, Denies dysphagia, Denies heartburn, Denies diarrhea, Denies nausea and Denies vomiting Details: increasing urinary frequency lately Denies difficulty voiding, Denies nocturia, Denies dysuria, Reports urinary incontinence (occasional urge incontinence) and Reports urinary urgency (especially in the morning) Musc Denies back pain, Denies arthralgias, Denies joint swelling, Denies muscle weakness and Denies neck pain Skin/Breast Denies breast pain, Denies breast mass, Denies change in pigmentation, Denies lesions, Denies rash and Denies unusual bruising Neuro Denies dizziness and Denies headache(s) Psych Denies anxiety and Denies depression Endo Denies fatigue and Denies palpitations Yosvany/Lymph Denies easy bruising Aller/Immun Denies itchy eyes and Denies wheezing Physical exam (Primary Care) Vital Signs: Last Vital Signs Pulse 47 L 09/09/23 17:02 BP 164/92 H 09/09/23 17:02 Pulse Ox 94 09/09/23 17:02 Oxygen Delivery Method Room Air 09/09/23 17:02 BMI result Body Mass Index 28.3 Tobacco/Smoking Status: Tobacco use Status Tobacco use date assessed 09/09/23 09/09/23 17:07 Patient Tobacco Use Status Never used Tobacco 09/09/23 17:07 e-Cigarette/Vaping Use Never Used 09/09/23 17:07 PHQ-9: PHQ-9 Score PHQ-9: Total score 0 09/10/23 05:08 Depression Screening Interpretation: Negative Thrive Assessment: Date of Thrive Assessment Date Thrive assessed 09/09/23 09/09/23 17:07 Currently or been in a relationship where the following occur: no concerns reported Results Reviewed Results Reviewed: Laboratory Tests 02/18/23 02/18/23 09/03/23 09:56 09:56 08:20 WBC 6.9 Hgb 13.0 Hct 41.6 Plt Count Sodium Potassium 3.8 Creatinine 0.80 Estimated GFR > 60 Fasting Glucose 93 Calcium 9.2 AST 14 ALT 7 Triglycerides 120 Cholesterol 231 228 H LDL Cholesterol, Calc 173 HDL Cholesterol Vitamin B12 25-OH Vitamin D Total TSH Free T4 Ur Specific [place] Urine Protein Urine Glucose (UA) Urine Blood Thyroid Peroxidase Ab 09/03/23 09/03/23 08:20 08:20 WBC Hgb Hct Plt Count 244 D Sodium 142 Potassium Creatinine Estimated GFR Fasting Glucose Calcium AST ALT Triglycerides Cholesterol LDL Cholesterol, Calc 162 H HDL Cholesterol 42 Vitamin B12 485 25-OH Vitamin D Total 30.3 L TSH 34.35 H Free T4 0.76 Ur Specific [place] 1.020 Urine Protein Trace Urine Glucose (UA) Negative Urine Blood Trace H Thyroid Peroxidase Ab 12 H Coding Level of Care Code Est Pt Prev Care >65y(09665) Diagnoses Annual physical exam Z00.00 Pure hypercholesterolemia E78.00 Acquired hypothyroidism E03.9 Cardiac arrhythmia, unspecified cardiac arrhythmia type I49.9 Arrhythmia type: unspecified cardiac arrhythmia Elevated blood pressure reading R03.0 Primary osteoarthritis of right knee M17.11 Pain in right ankle and joints of right foot M25.571 Anemia, unspecified type D64.9 Anemia type: unspecified type Vitamin D deficiency E55.9 Overactive bladder N32.81 Overweight (BMI 25.0-29.9) E66.3
== END 2023-09-09 18:05 | disposition home or self-care (01) ==
PROVIDERS: PCP Internal Medicine; Visit Provider Internal Medicine
DX: Z00.00 Encounter for general adult medical examination without abnormal findings (principal); E78.00 Pure hypercholesterolemia, unspecified; E03.9 Hypothyroidism, unspecified; I49.9 Cardiac arrhythmia, unspecified; R03.0 Elevated blood-pressure reading, without diagnosis of hypertension; M17.11 Unilateral primary osteoarthritis, right knee; M25.571 Pain in right ankle and joints of right foot; D64.9 Anemia, unspecified; E55.9 Vitamin D deficiency, unspecified; N32.81 Overactive bladder; E66.3 Overweight
CPT/HCPCS: 99499

== ENCOUNTER 2023-10-02 09:44 | Outpatient (REF) | payer MEDICARE, SELFPAY | END 2023-10-02 09:45 | disposition home or self-care (01) | LOC: HO.MAMMO 09:44 | PROVIDERS: PCP Internal Medicine; Visit Provider Internal Medicine | DX: Z12.31 Encounter for screening mammogram for malignant neoplasm of breast (principal) | CPT/HCPCS: 77063; 77067 ==

== ENCOUNTER → 2023-10-02 10:00 | Outpatient (BNV) | payer MEDICARE, SELFPAY | PROVIDERS: PCP Internal Medicine; Visit Provider Radiology Diagnostic Radiology | DX: Z12.31 Encounter for screening mammogram for malignant neoplasm of breast (principal) | CPT/HCPCS: 77063; 77067 ==

== ENCOUNTER 2024-01-07 08:44 | Outpatient (REF) | payer MEDICARE, SELFPAY ==
[2024-01-07 10:56] LABS: MANUAL DIFF FLAG NO
[2024-01-07 10:58] LABS: Appearance Urine Cloudy; Color Urine Yellow; Glucose Urine UA Negative (Negative); Leukocyte Esterase Urine Small (1+) (Negative); Nitrite Urine Negative (Negative); PH 5.5 (5.0-9.0); UMIC TRIGGER UACC YES; Urine Blood Negative (Negative); Urine Ketones Negative (Negative); Urine Protein Negative (Neg-Trace)
[2024-01-07 11:05] LABS: Basophils Percent Auto 0.6 % (0-2); Eosinophils Absolute Auto 0.3 X10*3/uL (0.0-0.4); Hematocrit 37.9 % (37.0-47.0); Hemoglobin 11.8 g/dl (12.0-16.0); Imm Gran Abs Auto 0.03 X10*3/uL (0.00-0.03); Imm Gran Pct Auto 0.4 % (0.0-0.4); Lymphocytes Absolute Auto 1.4 X10*3/uL (1.2-4.9); Lymphocytes Percent Auto 19.2 % (20-40); Mean Corpuscular HGB Conc 31.1 g/dl (31.0-35.0); Mean Corpuscular Hemoglobin 31.1 pg (27.0-33.0); Mean Platelet Volume 9.9 fL (9.4-12.3); Monocytes Absolute Auto 0.6 X10*3/uL (0.1-1.2); Monocytes Percent Auto 7.8 % (2-11); Neutrophils Absolute Auto 4.8 x10*3/uL (2.0-8.3); Platelet Count 249 X10*3/uL (160-400); Red Blood Count 3.79 X10*6/uL (4.20-5.50); Red Cell Distribution Width 14.5 % (11.0-16.0); White Blood Count 7.1 X10*3/uL (4.8-10.8)
[2024-01-07 11:18] LABS: Bacteria Urine None Seen (None Seen); Hyaline Casts Urine 0-2 /LPF (0-2); RBC Urine 0-2 /HPF (0-2); Squamous Epithelial Cell Urine >20 /HPF (0-2); UACC Culture Trigger YES
[2024-01-07 11:23] LABS: Alanine Aminotransferase 10 U/L (0-31); Albumin Level 3.5 g/dL (3.5-5.0); Alkaline Phosphatase 59 U/L (39-117); Anion Gap 9 (12-20); Aspartate Amino Transferase 15 U/L (5-31); Bilirubin Total 0.4 mg/dL (0.0-1.0); Blood Urea Nitrogen 20 mg/dL (9-16); Calcium 8.9 mg/dL (8.4-10.2); Carbon Dioxide 29 mmol/L (22-29); Chloride 108 mmol/L (96-108); Cholesterol 219 mg/dL (<200); Estimated Glomerular Filt Rate > 60; Glucose Fasting 89 mg/dL (60-99); HDL Cholesterol 43 mg/dL (>40); Iron 50 mcg/dL (30-160); LDL Cholesterol Calculated 149 mg/dL (<100); Percent Iron Saturation 23 % (15-50); Sodium 142 mmol/L (135-145); Total Iron Binding Capacity 215 mcg/dL (228-428); Total Protein 6.7 g/dL (6.5-8.0); Triglycerides 135 mg/dL (<150); Unsaturated Iron Binding 165 ug/dL
[2024-01-07 11:41] LABS: Free T4 (Free Thyroxine) 0.96 ng/dL (0.71-1.85); Thyroid Stimulating Hormone 8.05 uIU/mL (0.32-4.0); Vitamin D 25-OH Total 33.1 ng/mL (>30)
[2024-01-07 11:46] LABS: Folate 10.9 ng/mL (> or = 4.0); Vitamin B12 390 pg/mL (200-900)
== END 2024-01-07 08:45 | disposition home or self-care (01) ==
LOC: HO.10HDL 08:44
PROVIDERS: Visit Provider Internal Medicine
DX: E03.9 Hypothyroidism, unspecified (principal); E78.00 Pure hypercholesterolemia, unspecified; D50.9 Iron deficiency anemia, unspecified; I10 Essential (primary) hypertension; E55.9 Vitamin D deficiency, unspecified; E53.8 Deficiency of other specified B group vitamins; R82.90 Unspecified abnormal findings in urine
CPT/HCPCS: 36415; 80053; 80061; 81001; 82306; 82607; 82746; 83540; 84439; 84443; 85025; 87086

== ENCOUNTER 2024-01-13 12:18 | Outpatient (AMB) | payer MEDICARE, SELFPAY ==
[2024-01-13 12:33] VITALS: BP 136/90; PULSE 70; O2SAT 94; BMI 28.7
--- NOTE | 2024-01-13 12:33 | A.OFFPC_ITS ---
Vital Signs 01/13/24 12:33 Height 5 ft 8 in Weight 189 lb BMI 28.7 BP 136/90 H Blood Pressure Location Lt brachial Position Sitting Pulse 70 Pulse Source Pulse Oximeter Pulse Oximetry (%) 94 Oxygen Delivery Method Room Air Intake Visit Reasons: Rah's thyroiditis, HTN, OAB [employer] Required: No Debeaker: Not Required per policy Accompanied by: Self / Same As Patient Allergies Sulfa (Sulfonamide Antibiotics) [SULFA(SULFONAMIDE ANTIBIOTICS)] Allergy (Unknown, Verified 01/13/24 13:11) UNKNOWN Medication List - Last Reconciled 01/13/24 by Yuri Mcgrath MD atenolol 25 mg PO DAILY cholecalciferol (vitamin D3) 25 mcg PO DAILY ferrous sulfate (Feosol) 325 mg PO BID 90 days levothyroxine 125 mcg PO QAM 90 days magnesium 400 mg PO DAILY mecobalamin (vitamin B12) 1,000 mcg PO DAILY oxybutynin chloride ER 10 mg PO DAILY 30 days Tobacco use date assessed: 01/13/24 Fall risk assessment: No Falls in past year Last assessed Fall Risk: 01/13/24 Dental Screening Dental Screen Date: 01/13/24 Did you have a dental visit in the last 12 months?: Yes Did you have a dental problem in the last 6 months where you did not have access to dental care?: No Was dental information given to patient?: Patient has dentist HPI Rah's thyroiditis, HTN, OAB HPI Details Patient comes in today for her follow up visit States that she feels okay She denies any headaches or dizziness Denies any chest pains, no SOB No nausea/vomiting, no abdominal pain No change in bowel habits noted Had her follow up labs done last week - to discuss her results [facility] Medical History Overactive bladder Vitamin D deficiency Anemia Pain in right ankle and joints of right foot Elevated blood pressure reading Overweight (BMI 25.0-29.9) Primary osteoarthritis of right knee Cardiac arrhythmia Acquired hypothyroidism Pure hypercholesterolemia Surgical History History of cataract surgery Family History Father Cancer Daughter Breast cancer Social History Housing: House Alcohol intake: never Patient Tobacco Use Status: Never used Tobacco e-Cigarette/Vaping Use: Never Used Second Hand Smoke Exposure: Yes service: No Current occupational status: retired Cognitive needs: No Hearing needs: No Vision needs: Yes (Glasses) Questionnaire PHQ-9 Over the last 2 weeks, how often have you been bothered by any of the following problems? 1. Little interest or pleasure in doing things: not at all 2. Feeling down, depressed, or hopeless: not at all 3. Trouble falling or staying asleep, or sleeping too much: not at all 4. Feeling tired or having little energy: not at all 5. Poor appetite or overeating: not at all 6. Feeling bad about yourself - or that you are a failure or have let yourself or your family down: not at all 7. Trouble concentrating on things, such as reading the newspaper or watching television: not at all 8. Moving or speaking so slowly that other people could have noticed. Or the opposite - being so fidgety or restless that you have been moving around a lot more than usual: not at all 9. Thoughts that you would be better off or of hurting yourself in some way: not at all Total score: 0 Depression Screening Interpretation: Negative Depression Screening Done: Yes 18808 - PHQ-9 Billing: Yes Source: Developed by Drs. Marv Yao, Dolores Escalante, Joseph Adams and colleagues, with an educational keshav from [employer]. Thrive Questionnaire Date Thrive assessed: 01/13/24 I am a: Patient What is your living situation today?: I have a steady place to live Within the past 12 months, did the food you bought not last and you didn't have the money to get more?: Never true Within the past 12 months, did you worry whether your food would run out before you got money to buy more?: Never true Do you have trouble paying for medicines?: No Do you have trouble getting transportation to medical appointments?: No Do you have trouble paying your heating and electricity bill?: No Do you have trouble taking care of your child, family member or friend?: No Do you have trouble with day-to-day activities such as bathing, preparing meals, shopping, managing finances, etc.?: No Are you currently unemployed and looking for a job?: No Are you interested in more education?: No Please select the resources that you would like help with: None Currently or been in a relationship where the following occur: no concerns reported THRIVE Score: 0 AUDIT C Alcohol Use Questionnaire (AUDIT-C) 1. How often do you have a drink containing alcohol?: Never 3. How often do you have six or more drinks on one occasion?: Never Total Score: 0 Score Reviewed/Action Taken: Yes BHAVANI-7 AMB Questionnaire BHAVANI-7 Date BHAVANI - 7 assessed: 01/13/24 Feeling nervous, anxious, or on edge: 0 = Not at all Not being able to stop or control worryin = Not at all Worrying too much about different things: 0 = Not at all Trouble relaxin = Not at all Being so restless that it is hard to sit still: 0 = Not at all Becoming easily annoyed or irritable: 0 = Not at all Feeling afraid as if something awful might happen: 0 = Not at all Total BHAVANI-7 score (0-4 normal; 5-9 mild; 10-14 moderate; 15-21 severe): 0 Source: Developed by Drs. Marv Yao, Dolores Escalante, Joseph Adams and colleagues, with an educational keshav from [employer]. Review of Systems Const Denies chills, Denies fatigue, Denies fever(s) and Denies headache(s) ENT Denies dysphagia, Denies dizziness, Denies otalgia, Denies headache(s), Denies neck pain, Denies odynophagia and Denies sore throat Card Denies chest pain, Denies palpitations and Denies dyspnea Resp Denies cough, Denies dyspnea and Denies wheezing GI Denies abdominal pain, Denies constipation, Denies dysphagia, Denies heartburn, Denies diarrhea, Denies nausea, Denies odynophagia and Denies vomiting Denies difficulty voiding, Denies nocturia, Denies dysuria, Reports urinary incontinence (occasional urge incontinence) and Reports urinary urgency (especially in the morning) Musc Denies back pain, Denies arthralgias and Denies neck pain Skin/Breast Denies rash Neuro Denies dizziness and Denies headache(s) Psych Denies anxiety and Denies depression Endo Denies fatigue and Denies palpitations Yosvany/Lymph Denies easy bruising Aller/Immun Denies wheezing Physical exam (Primary Care) Vital Signs: Last Vital Signs Pulse 70 01/13/24 12:33 BP 136/90 H 01/13/24 12:33 Pulse Ox 94 01/13/24 12:33 Oxygen Delivery Method Room Air 01/13/24 12:33 BMI result Body Mass Index 28.7 Tobacco/Smoking Status: Tobacco use Status Tobacco use date assessed 01/13/24 01/13/24 12:34 Patient Tobacco Use Status Never used Tobacco 01/13/24 12:34 e-Cigarette/Vaping Use Never Used 01/13/24 12:34 PHQ-9: PHQ-9 Score PHQ-9: Total score 0 01/13/24 12:34 Depression Screening Interpretation: Negative Thrive Assessment: Date of Thrive Assessment Date Thrive assessed 01/13/24 01/13/24 12:34 Currently or been in a relationship where the following occur: no concerns reported Const General: no acute distress and alert HENMT Ears: TM's normal bilaterally and EAC's normal Throat: Yes posterior oropharynx normal and Yes tonsils normal (no TP congestion) Neck Neck: Yes no lymphadenopathy and Yes supple Thyroid: Thyroid normal Resp Auscultation: clear to auscultation bilaterally, no rales and no wheezes Cardio Rate: regular rate Rhythm: abnormal rhythm with ectopic beats Heart sounds: no murmurs GI Palpation (GI): Soft to palpation and nontender Auscultation: normal bowel sounds General: Yes no CVA tenderness Back/Spine/Pelvis Back: no CVA tenderness Skin Rashes: no rashes Extrem General: Yes no clubbing, cyanosis or edema Results Reviewed Results Reviewed: Laboratory Tests 01/07/24 08:50 WBC 7.1 Hgb 11.8 L Hct 37.9 Plt Count 249 Sodium 142 Potassium 4.0 Creatinine 0.83 Estimated GFR > 60 Fasting Glucose 89 Calcium 8.9 Iron 50 TIBC 215 L % Saturation 23 AST 15 ALT 10 Triglycerides 135 Cholesterol 219 H LDL Cholesterol, Calc 149 H HDL Cholesterol 43 Vitamin B12 390 25-OH Vitamin D Total 33.1 TSH 8.05 H Free T4 0.96 Ur Specific [place] 1.020 Urine Protein Negative Urine Glucose (UA) Negative Urine Blood Negative Urine Nitrite Negative Ur Leukocyte Esterase Small (1+) H Assessment and Plan Assessment & Plan (1) Pure hypercholesterolemia: Code(s): E78.00 - Pure hypercholesterolemia, unspecified Plan: Results of her labs done last week reviewed and discussed with patient - her total and LDL cholesterol levels have improved slightly from previous Reinforced low cholesterol diet Patient continues to decline pharmacotherapy for her cholesterol and would like to just continue with diet modification and lifestyle changes at this time Will recheck her labs and fasting lipids in 4 months for follow up (2) Acquired hypothyroidism: Code(s): E03.9 - Hypothyroidism, unspecified Plan: TSH is still slightly elevated but has improved significantly from previous; her free T4 level remained normal on her recent labs Continue Levothyroxine 100 mcg QD Will recheck her TFTs in 4 months for follow up (3) Cardiac arrhythmia: Code(s): I49.9 - Cardiac arrhythmia, unspecified Qualifiers: Arrhythmia type: unspecified cardiac arrhythmia Qualified Code(s): I49.9 - Cardiac arrhythmia, unspecified Plan: Stable with no recurrence of symptoms - exam today still reveals (+) occasional ectopic beats EKG done in the past (2008) revealed (+) occasional PVCs Continue Atenolol 25 mg QD (4) Elevated blood pressure reading: Code(s): R03.0 - Elevated blood-pressure reading, without diagnosis of hypertension Plan: Patient's blood pressure at home is reportedly usually normal? (systolic BP is usually around 120 to 130 mm) but BP is slighty high again in the office today (136/90) - patient seems to have a component of white coat syndrome Reinforced low sodium diet and advised to continue monitoring her blood pressure regularly - goal is systolic BP of at least 130 to 140 mm or less (5) Primary osteoarthritis of right knee: Comment: X-rays of the right knee done back in 2016 already showed (+) moderate to severe OA changes Code(s): M17.11 - Unilateral primary osteoarthritis, right knee Plan: X-rays of the right knee done back in 2015 already showed (+) moderate to severe OA changes States that her knee pain has improved a lot again with cortisone injection from orthopedics recently Follow up with orthopedics as scheduled (6) Pain in right ankle and joints of right foot: Comment: X-rays of the foot done in 2019 showed (+) bunion, mild OA changes and (+) ruben caneal spur Code(s): M25.571 - Pain in right ankle and joints of right foot Plan: X-rays of the foot done a couple of years ago showed (+) bunion, mild OA changes and (+) calcaneal spur Was seen by podiatry last year and was advised that her foot symptoms may also be partly due to the way she is walking as a result of her right knee OA - she may be subconsciously trying to compensate by walking differently than she normally does and this is aggravating her foot symptoms Follow up with podiatry as scheduled (7) Anemia: Code(s): D64.9 - Anemia, unspecified Qualifiers: Anemia type: unspecified type Qualified Code(s): D64.9 - Anemia, unspecified Plan: Corrected and H/H remain normal on her recent labs Continue Feosol 65 mg 1 tablet BID Will recheck CBC in 3 to 4 months for follow up Cologuard done back in August 2020 came back?NEGATIVE - is advised that she should repeat this again sometime soon (8) Vitamin D deficiency: Code(s): E55.9 - Vitamin D deficiency, unspecified Plan: Continue Vitamin D3 1000 units QD (9) Overactive bladder: Code(s): N32.81 - Overactive bladder Plan: Continue Oxybutynin ER 10 mg QD (10) Overweight (BMI 25.0-29.9): Code(s): E66.3 - Overweight Plan: Reinforced diet/exercise as tolerated/lose weight Plan Follow up in 4 months Orders: Orders Complete Blood Count Auto Diff 4 Months D64.9 - Anemia, unspecified Comprehensive Mobile. Panel Fast 4 Months E78.00 - Pure hypercholesterolemia, unspecified Lipid Panel 4 Months E78.00 - Pure hypercholesterolemia, unspecified Free T4 (Free Thyroxine) 4 Months E03.9 - Hypothyroidism, unspecified Thyroid Stimulating Hormone 4 Months E03.9 - Hypothyroidism, unspecified UA CC w/rflx Micro + Cult 4 Months R30.0 - Dysuria Vitamin D 25-OH Total 4 Months E55.9 - Vitamin D deficiency, unspecified Coding Level of Care Code Est Pt Level 4 (52420) Diagnoses Pure hypercholesterolemia E78.00 Acquired hypothyroidism E03.9 Cardiac arrhythmia, unspecified cardiac arrhythmia type I49.9 Arrhythmia type: unspecified cardiac arrhythmia Elevated blood pressure reading R03.0 Primary osteoarthritis of right knee M17.11 Pain in right ankle and joints of right foot M25.571 Anemia, unspecified type D64.9 Anemia type: unspecified type Vitamin D deficiency E55.9 Overactive bladder N32.81 Overweight (BMI 25.0-29.9) E66.3
== END 2024-01-13 13:23 | disposition home or self-care (01) ==
PROVIDERS: PCP Internal Medicine; Visit Provider Internal Medicine
DX: E78.00 Pure hypercholesterolemia, unspecified (principal); E03.9 Hypothyroidism, unspecified; I49.9 Cardiac arrhythmia, unspecified; R03.0 Elevated blood-pressure reading, without diagnosis of hypertension; M17.11 Unilateral primary osteoarthritis, right knee; M25.571 Pain in right ankle and joints of right foot; D64.9 Anemia, unspecified; E55.9 Vitamin D deficiency, unspecified; N32.81 Overactive bladder; E66.3 Overweight
CPT/HCPCS: 99214

== ENCOUNTER 2024-05-25 09:00 | Outpatient (REF) | payer MEDICARE, SELFPAY ==
[2024-05-25 11:06] LABS: Appearance Urine Turbid; Color Urine Yellow; Glucose Urine UA Negative (Negative); Leukocyte Esterase Urine Small (1+) (Negative); Nitrite Urine Positive (Negative); PH 5.5 (5.0-9.0); Specific Gravity - Urine >= 1.030 (1.005-1.025); UMIC TRIGGER UACC YES; Urine Blood Small (1+) (Negative); Urine Ketones Negative (Negative); Urine Protein Trace mg/dL (Neg-Trace)
[2024-05-25 11:08] LABS: MANUAL DIFF FLAG NO
[2024-05-25 11:25] LABS: Basophils Percent Auto 0.5 % (0-2); Eosinophils Absolute Auto 0.3 X10*3/uL (0.0-0.4); Eosinophils Percent Auto 3.3 % (0-4); Hematocrit 40.6 % (37.0-47.0); Hemoglobin 12.8 g/dl (12.0-16.0); Imm Gran Abs Auto 0.02 X10*3/uL (0.00-0.03); Imm Gran Pct Auto 0.3 % (0.0-0.4); Lymphocytes Absolute Auto 1.3 X10*3/uL (1.2-4.9); Lymphocytes Percent Auto 15.8 % (20-40); Mean Corpuscular HGB Conc 31.5 g/dl (31.0-35.0); Mean Corpuscular Hemoglobin 30.3 pg (27.0-33.0); Mean Platelet Volume 10.4 fL (9.4-12.3); Monocytes Absolute Auto 0.7 X10*3/uL (0.1-1.2); Monocytes Percent Auto 8.6 % (2-11); Neutrophils Absolute Auto 5.7 x10*3/uL (2.0-8.3); Neutrophils Percent Auto 71.5 % (45-73); Platelet Count 211 X10*3/uL (160-400); Red Blood Count 4.23 X10*6/uL (4.20-5.50)
[2024-05-25 11:28] LABS: Bacteria Urine 2+ (None Seen); Calcium Oxalate Crystals Urine Present; Squamous Epithelial Cell Urine >20 /HPF (0-2); UACC Culture Trigger YES; WBC Urine >50 /HPF (0-5)
[2024-05-25 11:35] LABS: Alanine Aminotransferase 12 U/L (0-31); Albumin Level 3.5 g/dL (3.5-5.0); Alkaline Phosphatase 63 U/L (39-117); Anion Gap 10 (12-20); Aspartate Amino Transferase 14 U/L (5-31); Bilirubin Total 0.4 mg/dL (0.0-1.0); Blood Urea Nitrogen 13 mg/dL (9-16); Calcium 8.7 mg/dL (8.4-10.2); Carbon Dioxide 27 mmol/L (22-29); Chloride 107 mmol/L (96-108); Cholesterol 201 mg/dL (<200); Estimated Glomerular Filt Rate > 60; Glucose Fasting 89 mg/dL (60-99); HDL Cholesterol 39 mg/dL (>40); LDL Cholesterol Calculated 140 mg/dL (<100); Potassium 3.6 mmol/L (3.3-5.1); Sodium 140 mmol/L (135-145); Total Protein 6.8 g/dL (6.5-8.0); Triglycerides 111 mg/dL (<150)
[2024-05-25 11:57] LABS: Free T4 (Free Thyroxine) 0.98 ng/dL (0.71-1.85); Thyroid Stimulating Hormone 15.49 uIU/mL (0.32-4.0); Vitamin D 25-OH Total 30.9 ng/mL (>30)
== END 2024-05-25 09:01 | disposition home or self-care (01) ==
LOC: HO.10HDL 09:00
PROVIDERS: Visit Provider Internal Medicine
DX: D64.9 Anemia, unspecified (principal); E78.00 Pure hypercholesterolemia, unspecified; E55.9 Vitamin D deficiency, unspecified; E03.9 Hypothyroidism, unspecified; R30.0 Dysuria; R82.79 Other abnormal findings on microbiological examination of urine
CPT/HCPCS: 36415; 80053; 80061; 81001; 82306; 84439; 84443; 85025; 87086; 87088; 87147; 87186

== ENCOUNTER 2024-06-01 09:48 | Outpatient (AMB) | payer MEDICARE, SELFPAY ==
[2024-06-01 09:59] VITALS: BP 128/78; PULSE 55; O2SAT 97; BMI 28.4
--- NOTE | 2024-06-01 09:59 | MHC.PC.OV ---
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 Accompanied by: Self / Same As Patient Allergies Sulfa (Sulfonamide Antibiotics) [SULFA(SULFONAMIDE ANTIBIOTICS)] Allergy (Unknown, Verified 06/01/24 10:33) UNKNOWN Medication List - Last Reconciled 06/01/24 by Yuri Mcgrath MD atenolol 25 mg PO DAILY cholecalciferol (vitamin D3) 25 mcg PO DAILY ferrous sulfate (Feosol) 325 mg PO BID 90 days levothyroxine 125 mcg PO QAM 90 days magnesium 400 mg PO DAILY mecobalamin (vitamin B12) 1,000 mcg PO DAILY oxybutynin chloride ER 10 mg PO DAILY 30 days Tobacco use date assessed: 06/01/24 Fall risk assessment: No Falls in past year Last assessed Fall Risk: 06/01/24 Dental Screening Dental Screen Date: 06/01/24 Did you have a dental visit in the last 12 months?: Yes Did you have a dental problem in the last 6 months where you did not have access to dental care?: No Was dental information given to patient?: Patient has dentist HPI 4mo HPI Details Patient comes in today for her follow up visit States that she feels okay She denies any headaches or dizziness Denies any chest pains, no SOB No nausea/vomiting, no abdominal pain No change in bowel habits noted She denies any dysuria although she has noticed an increase in her urinary frequency lately She had her follow up labs done last week - to discuss her results [facility] Medical History Rah's thyroiditis Overactive bladder Vitamin D deficiency Anemia Pain in right ankle and joints of right foot Elevated blood pressure reading Overweight (BMI 25.0-29.9) Primary osteoarthritis of right knee Cardiac arrhythmia Acquired hypothyroidism Pure hypercholesterolemia Surgical History History of cataract surgery Family History Father Cancer Daughter Breast cancer Social History Housing: House Alcohol intake: never Patient Tobacco Use Status: Never used Tobacco e-Cigarette/Vaping Use: Never Used Second Hand Smoke Exposure: Yes service: No Current occupational status: retired Cognitive needs: No Hearing needs: No Vision needs: Yes (Glasses) Questionnaire PHQ-9 Over the last 2 weeks, how often have you been bothered by any of the following problems? 1. Little interest or pleasure in doing things: not at all 2. Feeling down, depressed, or hopeless: not at all 3. Trouble falling or staying asleep, or sleeping too much: not at all 4. Feeling tired or having little energy: not at all 5. Poor appetite or overeating: not at all 6. Feeling bad about yourself - or that you are a failure or have let yourself or your family down: not at all 7. Trouble concentrating on things, such as reading the newspaper or watching television: not at all 8. Moving or speaking so slowly that other people could have noticed. Or the opposite - being so fidgety or restless that you have been moving around a lot more than usual: not at all 9. Thoughts that you would be better off or of hurting yourself in some way: not at all Total score: 0 Depression Screening Interpretation: Negative Depression Screening Done: Yes 20469 - PHQ-9 Billing: Yes Source: Developed by Drs. Marv Yao, Dolores Escalante, Joseph Adams and colleagues, with an educational keshav from [employer]. Thrive Questionnaire Date Thrive assessed: 06/01/24 I am a: Patient What is your living situation today?: I have a steady place to live Within the past 12 months, did the food you bought not last and you didn't have the money to get more?: Never true Within the past 12 months, did you worry whether your food would run out before you got money to buy more?: Never true Do you have trouble paying for medicines?: No Do you have trouble getting transportation to medical appointments?: No Do you have trouble paying your heating and electricity bill?: No Do you have trouble taking care of your child, family member or friend?: No Do you have trouble with day-to-day activities such as bathing, preparing meals, shopping, managing finances, etc.?: No Are you currently unemployed and looking for a job?: No Are you interested in more education?: No Please select the resources that you would like help with: None Currently or been in a relationship where the following occur: No concerns reported THRIVE Score: 0 AUDIT C Alcohol Use Questionnaire (AUDIT-C) 1. How often do you have a drink containing alcohol?: Never 3. How often do you have six or more drinks on one occasion?: Never Total Score: 0 Score Reviewed/Action Taken: Yes BHAVANI-7 AMB Questionnaire BHAVANI-7 Date BHAVANI - 7 assessed: 06/01/24 Feeling nervous, anxious, or on edge: 0 = Not at all Not being able to stop or control worryin = Not at all Worrying too much about different things: 0 = Not at all Trouble relaxin = Not at all Being so restless that it is hard to sit still: 0 = Not at all Becoming easily annoyed or irritable: 0 = Not at all Feeling afraid as if something awful might happen: 0 = Not at all Total BHAVANI-7 score (0-4 normal; 5-9 mild; 10-14 moderate; 15-21 severe): 0 Source: Developed by Drs. Marv Yao, Dolores Escalante, Joseph Adams and colleagues, with an educational keshav from [employer]. Review of Systems Const Denies chills, Denies fatigue, Denies fever(s) and Denies headache(s) ENT Denies dysphagia, Denies dizziness, Denies otalgia, Denies headache(s), Denies neck pain, Denies odynophagia and Denies sore throat Card Denies chest pain, Denies palpitations and Denies dyspnea Resp Denies cough, Denies dyspnea and Denies wheezing GI Denies abdominal pain, Denies constipation, Denies dysphagia, Denies heartburn, Denies diarrhea, Denies nausea, Denies odynophagia and Denies vomiting Denies difficulty voiding, Denies nocturia (but has noticed a slight increase in urinary frequency lately), Denies dysuria, Reports urinary incontinence (occasional urge incontinence) and Reports urinary urgency (especially in the morning) Musc Denies back pain, Denies arthralgias and Denies neck pain Skin/Breast Denies rash Neuro Denies dizziness and Denies headache(s) Psych Denies anxiety and Denies depression Endo Denies fatigue and Denies palpitations Yosvany/Lymph Denies easy bruising Aller/Immun Denies wheezing Physical exam (Primary Care) Vital Signs: Last Vital Signs Pulse 55 06/01/24 09:59 BP 128/78 06/01/24 09:59 Pulse Ox 97 06/01/24 09:59 Oxygen Delivery Method Room Air 06/01/24 09:59 BMI result Body Mass Index 28.4 Tobacco/Smoking Status: Tobacco use Status Tobacco use date assessed 06/01/24 06/01/24 10:01 Patient Tobacco Use Status Never used Tobacco 06/01/24 10:01 e-Cigarette/Vaping Use Never Used 06/01/24 10:01 PHQ-9: PHQ-9 Score PHQ-9: Total score 0 06/01/24 10:01 Depression Screening Interpretation: Negative Thrive Assessment: Date of Thrive Assessment Date Thrive assessed 06/01/24 06/01/24 10:01 Currently or been in a relationship where the following occur: No concerns reported Const General: no acute distress and alert HENMT Ears: TM's normal bilaterally and EAC's normal Throat: Yes posterior oropharynx normal and Yes tonsils normal (no TP congestion) Neck Neck: Yes no lymphadenopathy and Yes supple Thyroid: Thyroid normal Resp Auscultation: clear to auscultation bilaterally, no rales and no wheezes Cardio Rate: regular rate Rhythm: abnormal rhythm with ectopic beats Heart sounds: no murmurs GI Palpation (GI): Soft to palpation and nontender Auscultation: normal bowel sounds General: Yes no CVA tenderness Back/Spine/Pelvis Back: no CVA tenderness Thoracic/Lumbar Spine: No lumbar spinal tenderness Skin Rashes: no rashes Extrem General: Yes no clubbing, cyanosis or edema Results Reviewed Results Reviewed: Laboratory Tests 09/03/23 05/25/24 08:20 09:04 WBC 8.0 Hgb 12.8 Hct 40.6 Plt Count 211 Sodium 140 Potassium 3.6 Creatinine 0.71 Estimated GFR > 60 Fasting Glucose 89 Calcium 8.7 AST 14 ALT 12 Triglycerides 111 Cholesterol 201 H LDL Cholesterol, Calc 140 H HDL Cholesterol 39 L TSH 15.49 H Free T4 0.98 Ur Specific Iota >= 1.030 H Urine Protein Trace Urine Glucose (UA) Negative Urine Blood Small (1+) H Urine Nitrite Positive H Ur Leukocyte Esterase Small (1+) H Ur Squamous Epith Cells >20 Thyroid Peroxidase Ab 12 H Assessment and Plan Assessment & Plan (1) Pure hypercholesterolemia: Code(s): E78.00 - Pure hypercholesterolemia, unspecified Plan: Results of her labs done last week reviewed and discussed with patient - her total and LDL cholesterol levels are both still elevated but have again improved slightly from previous Reinforced low cholesterol diet Patient continues to decline pharmacotherapy for her cholesterol and would just like to continue with diet modification and lifestyle changes at this time Will recheck her labs and fasting lipids in 4 months for follow up (2) Acquired hypothyroidism: Code(s): E03.9 - Hypothyroidism, unspecified Plan: TSH is still elevated on her recent labs; her free T4 level remains normal - findings are consistent with Rah's thyroiditis Continue Levothyroxine 100 mcg QD - patient remains clinically euthyroid Will recheck her TFTs in 4 months for follow up I have also recommended an endocrinology consultation regarding her thyroid condition as it has been almost 2 years now since her TSH has gone up and remains high - referral to endocrinology done (3) Cardiac arrhythmia: Code(s): I49.9 - Cardiac arrhythmia, unspecified Qualifiers: Arrhythmia type: unspecified cardiac arrhythmia Qualified Code(s): I49.9 - Cardiac arrhythmia, unspecified Plan: Stable with no recurrence of symptoms - exam today still reveals (+) occasional ectopic beats EKG done in the past (2008) revealed (+) occasional PVCs Continue Atenolol 25 mg QD (4) Elevated blood pressure reading: Code(s): R03.0 - Elevated blood-pressure reading, without diagnosis of hypertension Plan: Patient's blood pressure at home is reportedly usually normal? (systolic BP is usually around 120 to 130 mm) Patient appears to have a component of white coat syndrome although her blood pressure in the office today is good (128/78) Reinforced low sodium diet and she is advised to continue monitoring her blood pressure regularly - goal is systolic BP of at least 130 to 140 mm or less (5) Vitamin D deficiency: Code(s): E55.9 - Vitamin D deficiency, unspecified Plan: Continue Vitamin D3 1000 units QD (6) Primary osteoarthritis of right knee: Comment: X-rays of the right knee done back in 2016 already showed (+) moderate to severe OA changes Code(s): M17.11 - Unilateral primary osteoarthritis, right knee Plan: X-rays of the right knee done back in 2015 already showed (+) moderate to severe OA changes States that her knee pain has improved a lot with cortisone injection from orthopedics recently Follow up with orthopedics as scheduled (7) Pain in right ankle and joints of right foot: Comment: X-rays of the foot done in 2019 showed (+) bunion, mild OA changes and (+) calcaneal spur Code(s): M25.571 - Pain in right ankle and joints of right foot Plan: X-rays of the foot done a couple of years ago showed (+) bunion, mild OA changes and (+) calcaneal spur She was seen by podiatry last year and was advised that her foot symptoms may also be partly due to the way she is walking as a result of her right knee OA - she may be subconsciously trying to compensate by walking differently than she normally does and this is aggravating her foot symptoms Follow up with podiatry as scheduled (8) Anemia: Code(s): D64.9 - Anemia, unspecified Qualifiers: Anemia type: unspecified type Qualified Code(s): D64.9 - Anemia, unspecified Plan: Corrected - her H/H have remained normal on her recent labs Continue Feosol 65 mg 1 tablet BID Will recheck CBC in 3 to 4 months for follow up Cologuard done back in August 2020 came back?NEGATIVE - is advised that she should repeat this again sometime soon Patient now recalls having another Cologuard test done more recently - will try to see if we can locate this for documentation (9) Overactive bladder: Code(s): N32.81 - Overactive bladder Plan: Continue Oxybutynin ER 10 mg QD (10) E. coli urinary tract infection: Code(s): N39.0 - Urinary tract infection, site not specified; B96.20 - Unspecified Escherichia coli [E. coli] as the cause of diseases classified elsewhere Plan: Her urine culture done last week grew (+) E. coli along with group B strep (group B strep is usually a benign finding) Due to her recently increasing urinary frequency, will go ahead and treat her empirically for the E. coli in her recent urine culture - will start her on Macrodantin 100 mg BID x 7 days (11) Overweight (BMI 25.0-29.9): Code(s): E66.3 - Overweight Plan: Reinforced diet/exercise as tolerated/lose weight Plan Follow up in 4 months Orders: Orders UA CC w/rflx Micro + Cult 4 Months R30.0 - Dysuria Free T4 (Free Thyroxine) 4 Months E03.9 - Hypothyroidism, unspecified, E06.3 - Autoimmune thyroiditis Complete Blood Count Auto Diff 4 Months D64.9 - Anemia, unspecified Lipid Panel 4 Months E78.00 - Pure hypercholesterolemia, unspecified Comprehensive [place]. Panel Fast 4 Months E78.00 - Pure hypercholesterolemia, unspecified Vitamin D 25-OH Total 4 Months E55.9 - Vitamin D deficiency, unspecified Thyroid Stimulating Hormone 4 Months E03.9 - Hypothyroidism, unspecified, E06.3 - Autoimmune thyroiditis Referrals Endocrinology Referral E06.3 - Autoimmune thyroiditis Medications: New nitrofurantoin monohyd/m-cryst 100 mg (Macrobid) must administer with a meal/food 100 mg PO Q12H 7 days 14 caps 0RF Coding Level of Care Code Est Pt Level 4 (91596) Complex EM visit Add On G2211 Diagnoses Pure hypercholesterolemia E78.00 Acquired hypothyroidism E03.9 Cardiac arrhythmia, unspecified cardiac arrhythmia type I49.9 Arrhythmia type: unspecified cardiac arrhythmia Elevated blood pressure reading R03.0 Vitamin D deficiency E55.9 Primary osteoarthritis of right knee M17.11 Pain in right ankle and joints of right foot M25.571 Anemia, unspecified type D64.9 Anemia type: unspecified type Overactive bladder N32.81 E. coli urinary tract infection N39.0; B96.20 Overweight (BMI 25.0-29.9) E66.3
== END 2024-06-01 10:48 | disposition home or self-care (01) ==
PROVIDERS: PCP Internal Medicine; Visit Provider Internal Medicine
DX: E78.00 Pure hypercholesterolemia, unspecified (principal); E03.9 Hypothyroidism, unspecified; I49.9 Cardiac arrhythmia, unspecified; R03.0 Elevated blood-pressure reading, without diagnosis of hypertension; E55.9 Vitamin D deficiency, unspecified; M17.11 Unilateral primary osteoarthritis, right knee; M25.571 Pain in right ankle and joints of right foot; D64.9 Anemia, unspecified; N32.81 Overactive bladder; N39.0 Urinary tract infection, site not specified; B96.20 Unspecified Escherichia coli [E. coli] as the cause of diseases classified elsewhere; E66.3 Overweight
CPT/HCPCS: 99214; G2211

== ENCOUNTER 2024-06-07 12:40 | Outpatient (AMB) | payer MEDICARE, SELFPAY ==
--- NOTE | 2024-06-07 12:52 | MHC.OFFVIS ---
Vital Signs 06/07/24 12:53 Height 5 ft 8 in Weight 188 lb 11.451 oz BMI 28.7 BP 182/80 H Blood Pressure Location Lt brachial Position Sitting Pulse 46 L Pulse Source Pulse Oximeter Intake Visit Reasons: Autoimmune thyroiditis/CONFIRMED Intake Note: Patient present today for Autoimmune thyroiditis office visit. 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 Accompanied by: Self / Same As Patient Allergies Sulfa (Sulfonamide Antibiotics) [SULFA(SULFONAMIDE ANTIBIOTICS)] Allergy (Unknown, Verified 06/07/24 12:57) UNKNOWN Medication List - Last Reconciled 06/07/24 by Linda Oneal MD atenolol 25 mg PO DAILY cholecalciferol (vitamin D3) 25 mcg PO DAILY ferrous sulfate (Feosol) 325 mg PO BID 90 days levothyroxine 125 mcg PO QAM 90 days magnesium 400 mg PO DAILY mecobalamin (vitamin B12) 1,000 mcg PO DAILY nitrofurantoin monohyd/m-cryst 100 mg (Macrobid) 100 mg PO Q12H 7 days oxybutynin chloride ER 10 mg PO DAILY 30 days HPI Comments Details: 73-year-old female here today for initial evaluation of hypothyroidism. Diagnosis: at least 20 years ago Kayden on levothyroxine 125 mcg daily has been on it for at least a year. Takes 7 am. Waits an hour before eating. Has not missed any doses. Most recent blood work from 05/25/24 showed TSH of 15.4, which is elevated and normal free T4 of 0.98. Before that she had blood work done in December 2023 without showed elevated TSH of 8, with free T4 around the same range. No dose changes were made at this time. Patient currently denies heat or cold intolerance, diarrhea or constipation, hair loss, palpitation, anxiety, weight changes, mood changes, low energy, changes in appearance of eyes or vision changes, tremors, increased diaphoresis or dry skin. ? Patient denies any difficulty swallowing, pain on swallowing or voice changes or difficulty breathing. Patient denies any history of childhood neck radiation. Denies having ever used lithium, amiodarone or biotin supplements. Patient denies any family history of thyroid cancer. Daughter and granddaughter have hypothyroidism. 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 Review of systems Constitutional: no fevers, chills or weight loss HEENT: no changes in vision Cardiac: No chest pain, discomfort or palpitations. Pulmonary: No SOB GI:No abdominal pain, no nausea or vomiting, no anorexia, no blood in stool : no burning micturition, dysuria or increase in urinary frequency Neurologic: No dizziness, no weakness in extremities MSK: no back pain or joint stiffness Physical exam General: sitting comfortably in no acute distress HEENT: normocephalic/atraumatic, , moist oral mucosa Neck: supple, symmetrical, no thyromegaly , no dorsocervical or supraclavicular fat pads Cardiac: normal heart sounds Pulm: normal breath sounds B/L, no added breath sounds Abd: not distended, no tenderness Extremities: no edema, no signs of myxedema, normal reflexes PFSH Medical History Rah's thyroiditis Overactive bladder Vitamin D deficiency Anemia Pain in right ankle and joints of right foot Elevated blood pressure reading Overweight (BMI 25.0-29.9) Primary osteoarthritis of right knee Cardiac arrhythmia Acquired hypothyroidism Pure hypercholesterolemia Surgical History History of cataract surgery Family History Father Cancer Daughter Breast cancer Social History Housing: House Alcohol intake: never Patient Tobacco Use Status: Never used Tobacco e-Cigarette/Vaping Use: Never Used Second Hand Smoke Exposure: Yes service: No Current occupational status: retired Cognitive needs: No Hearing needs: No Vision needs: Yes (Glasses) Physical Exam Vital Signs: Last Vital Signs Pulse 46 L 06/07/24 12:53 BP 182/80 H 06/07/24 12:53 BMI result Body Mass Index 28.7 Results Reviewed Results Reviewed: Laboratory Tests 01/07/19 05/10/19 09/13/19 08:00 10:20 08:10 TSH Free T4 1.09 1.21 1.39 03/28/20 07/31/20 11/28/20 09:00 08:40 09:15 TSH 0.76 0.73 Free T4 1.26 1.41 1.22 04/04/21 10/29/21 06/05/22 09:03 10:07 09:55 TSH 0.82 2.50 3.31 Free T4 1.44 1.16 10/08/22 02/18/23 09/03/23 09:15 09:56 08:20 TSH 8.43 H 13.52 H 34.35 H Free T4 1.14 1.08 0.76 01/07/24 05/25/24 08:50 09:04 TSH 8.05 H 15.49 H Free T4 0.96 0.98 Laboratory Tests 09/03/23 08:20 Thyroid Peroxidase Ab 12 H Assessment & Plan Assessment & Plan (1) Rah's thyroiditis: Code(s): E06.3 - Autoimmune thyroiditis Category: Medical Plan: Patient with a history of Rah's thyroiditis for about 20 years, he used to be biochemically euthyroid 2-3 years ago, who has recently been noted to have elevated TSH levels. She has been on levothyroxine 125 mcg daily for at least the past year. Her most recent blood work from 05/25/2024 showed elevated TSH of 15.49 with normal free T4 of 0.98. She does not have any symptoms. Her weight based dosing comes out to be 136 mcg. Hence I will increase her levothyroxine to 137 mcg daily. We will repeat TFTs in 6 weeks' time to see if there is improvement in her TSH levels. She endorses adherence to her therapy, and takes it appropriately. However it is important to think of other differentials, she could possibly have human anti mouse antibodies, though no interaction with mice, these antibodies are often prevalent in up to 10% of the population, and if her blood work in 6 weeks dose shows no improvement in her TSH, we will 1st consider repeating labs at a different lab, since the antibodies might be interfering with [facility] but might not be interfering with the another lab. If those labs are also abnormal, we will consider checking her for human anti mouse antibodies. Patient verbalized understanding and is agreeable with the plan. Plan: -increase levothyroxine to 137 mcg daily -check TSH, free T4 in 6 weeks -follow up in 8 weeks Plan I spent 45 minutes in reviewing the record, seeing the patient and documenting in the medical record. Orders: Orders Free T4 (Free Thyroxine) 6 Weeks E06.3 - Autoimmune thyroiditis Thyroid Stimulating Hormone 6 Weeks E06.3 - Autoimmune thyroiditis Thyroid Stimulating Hormone 8 Weeks E06.3 - Autoimmune thyroiditis Free T4 (Free Thyroxine) 8 Weeks E06.3 - Autoimmune thyroiditis Medications: New levothyroxine (Synthroid) 137 mcg PO DAILY 30 tabs 5RF Discontinued levothyroxine Discontinued Reason: Patient Completed Course 125 mcg PO QAM 90 days 90 tabs 0RF Patient Instructions: Increase levothyroxine to 137 mcg daily Do blood work in 6 weeks We will follow up in 8 weeks Coding Level of Care Code New Pt Level 4 (26896) Diagnoses Rah's thyroiditis E06.3 Time Spent (min) 45
[2024-06-07 12:53] VITALS: BP 182/80; PULSE 46; BMI 28.7
== END 2024-06-07 13:30 | disposition home or self-care (01) ==
PROVIDERS: PCP Internal Medicine; Visit Provider Student in an Organized Health Care Education/Training Program
DX: E06.3 Autoimmune thyroiditis (principal)
CPT/HCPCS: 99204

== ENCOUNTER → 2024-06-07 12:40 | Outpatient (BNVA) | payer MEDICARE, SELFPAY | PROVIDERS: PCP Internal Medicine; Visit Provider Student in an Organized Health Care Education/Training Program | DX: E06.3 Autoimmune thyroiditis (principal) | CPT/HCPCS: 99202 ==

== ENCOUNTER 2024-07-20 08:35 | Outpatient (REF) | payer MEDICARE, SELFPAY ==
[2024-07-20 12:17] LABS: Free T4 (Free Thyroxine) 1.09 ng/dL (0.71-1.85); Thyroid Stimulating Hormone 12.01 uIU/mL (0.32-4.0)
== END 2024-07-20 08:36 | disposition home or self-care (01) ==
LOC: HO.10HDL 08:35
PROVIDERS: Visit Provider Student in an Organized Health Care Education/Training Program
DX: E06.3 Autoimmune thyroiditis (principal)
CPT/HCPCS: 36415; 84439; 84443

== ENCOUNTER 2024-08-02 10:48 | Outpatient (AMB) | payer MEDICARE, SELFPAY ==
--- NOTE | 2024-08-02 10:48 | A.OFFVIS_ITS ---
Vital Signs 08/02/24 10:49 Height 5 ft 8 in Weight 189 lb 13.088 oz BMI 28.9 BP 170/90 H Blood Pressure Location Lt brachial Position Sitting Pulse 70 Pulse Source Pulse Oximeter Intake Visit Reasons: Autoimmune thyroiditis-confirmed Intake Note: Patient present today for Autoimmune thyroiditis office visit. Rides Supervisor Required: No Accompanied by: Self / Same As Patient Allergies Sulfa (Sulfonamide Antibiotics) [SULFA(SULFONAMIDE ANTIBIOTICS)] Allergy (Unknown, Verified 08/02/24 10:54) UNKNOWN Medication List - Last Reconciled 08/02/24 by Linda Oneal MD atenolol 25 mg PO DAILY cholecalciferol (vitamin D3) 25 mcg PO DAILY ferrous sulfate (Feosol) 325 mg PO BID 90 days levothyroxine (Synthroid) 150 mcg PO DAILY magnesium 400 mg PO DAILY mecobalamin (vitamin B12) 1,000 mcg PO DAILY oxybutynin chloride ER 10 mg PO DAILY 30 days HPI Comments Details: 73-year-old female here today for follow up of hypothyroidism. HPI from prior visit Diagnosis: at least 20 years ago Kayden on levothyroxine 125 mcg daily has been on it for at least a year. Takes 7 am. Waits an hour before eating. Has not missed any doses. blood work from 05/25/24 showed TSH of 15.4, which is elevated and normal free T4 of 0.98. Before that she had blood work done in December 2023 without showed elevated TSH of 8, with free T4 around the same range. No dose changes were made at this time. Interval history Increased levothyroxine to 137 mcg daily on 06/08/24 Labs 07/20/24 TSH still high at 12.01, free T4 still normal at 1.09 Patient currently denies heat or cold intolerance, diarrhea or constipation, hair loss, palpitation, anxiety, weight changes, mood changes, low energy, changes in appearance of eyes or vision changes, tremors, increased diaphoresis or dry skin. ? Patient denies any difficulty swallowing, pain on swallowing or voice changes or difficulty breathing. Patient denies any history of childhood neck radiation. Denies having ever used lithium, amiodarone or biotin supplements. Patient denies any family history of thyroid cancer. Daughter and granddaughter have hypothyroidism. 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 Review of systems Constitutional: no fevers, chills or weight loss HEENT: no changes in vision Cardiac: No chest pain, discomfort or palpitations. Pulmonary: No SOB GI:No abdominal pain, no nausea or vomiting, no anorexia, no blood in stool : no burning micturition, dysuria or increase in urinary frequency Neurologic: No dizziness, no weakness in extremities MSK: no back pain or joint stiffness Physical exam General: sitting comfortably in no acute distress HEENT: normocephalic/atraumatic, , moist oral mucosa Neck: supple, symmetrical, no thyromegaly , no dorsocervical or supraclavicular fat pads Cardiac: normal heart sounds Pulm: normal breath sounds B/L, no added breath sounds Abd: not distended, no tenderness Extremities: no edema, no signs of myxedema, normal reflexes Laboratory Tests 01/07/19 05/10/19 09/13/19 08:00 10:20 08:10 TSH Free T4 1.09 1.21 1.39 Thyroid Peroxidase Ab 03/28/20 07/31/20 11/28/20 09:00 08:40 09:15 TSH 0.76 0.73 Free T4 1.26 1.41 1.22 Thyroid Peroxidase Ab 04/04/21 10/29/21 06/05/22 09:03 10:07 09:55 TSH 0.82 2.50 3.31 Free T4 1.44 1.16 Thyroid Peroxidase Ab 10/08/22 02/18/23 09/03/23 09:15 09:56 08:20 TSH 8.43 H 13.52 H 34.35 H Free T4 1.14 1.08 0.76 Thyroid Peroxidase Ab 12 H 01/07/24 05/25/24 07/20/24 08:50 09:04 08:37 TSH 8.05 H 15.49 H 12.01 H Free T4 0.96 0.98 1.09 Thyroid Peroxidase Ab [facility] Medical History Rah's thyroiditis Overactive bladder Vitamin D deficiency Anemia Pain in right ankle and joints of right foot Elevated blood pressure reading Overweight (BMI 25.0-29.9) Primary osteoarthritis of right knee Cardiac arrhythmia Acquired hypothyroidism Pure hypercholesterolemia Surgical History History of cataract surgery Family History Father Cancer Daughter Breast cancer Social History Housing: House Alcohol intake: never Patient Tobacco Use Status: Never used Tobacco e-Cigarette/Vaping Use: Never Used Second Hand Smoke Exposure: Yes service: No Current occupational status: retired Cognitive needs: No Hearing needs: No Vision needs: Yes (Glasses) Physical Exam Vital Signs: Last Vital Signs Pulse 70 08/02/24 10:49 BP 170/90 H 08/02/24 10:49 BMI result Body Mass Index 28.9 Assessment & Plan Assessment & Plan (1) Elevated TSH: Code(s): R79.89 - Other specified abnormal findings of blood chemistry Category: Medical Plan: see below (2) Rah's thyroiditis: Code(s): E06.3 - Autoimmune thyroiditis Category: Medical Plan: Patient with a history of Rah's thyroiditis for about 20 years, he used to be biochemically euthyroid 2-3 years ago, who has recently been noted to have elevated TSH levels. She was on levothyroxine 125 mcg daily for at least the past year. Her blood work from 05/25/2024 showed elevated TSH of 15.49 with normal free T4 of 0.98. She does not have any symptoms. Her weight based dosing comes out to be 136 mcg. On 06/08/2024 I increased her dosing to 137 mcg daily, subsequently most recent lab Labs 07/20/24 TSH still high at 12.01, free T4 still normal at 1.09 We will increase the dose further to 150 mcg daily. We will repeat TFTs in 6 weeks' time to see if there is improvement in her TSH levels. She endorses adherence to her therapy, and takes it appropriately. However it is important to think of other differentials, she could possibly have human anti mouse antibodies, though no interaction with mice, these antibodies are often prevalent in up to 10% of the population, and if her blood work in 6 weeks dose shows no improvement in her TSH, we will consider checking her for human anti mouse antibodies. [facility] since the antibodies might be interfering with our assay but might not be interfering with the another lab. If those labs are also abnormal, we will consider checking her for human anti mouse antibodies Patient verbalized understanding and is agreeable with the plan. Plan: -increase levothyroxine to 150 mcg daily -check TSH, free T4 in 6 weeks -follow up in 7 weeks Plan I spent 30 minutes in reviewing the record, seeing the patient and documenting in the medical record. Orders: Orders Thyroid Stimulating Hormone 6 Weeks E03.9 - Hypothyroidism, unspecified, R79.89 - Other specified abnormal findings of blood chemistry Free T4 (Free Thyroxine) 6 Weeks E03.9 - Hypothyroidism, unspecified, R79.89 - Other specified abnormal findings of blood chemistry Patient Instructions: Increase levothyroxine to 150 mcg daily Do repeat labs in 6 weeks, at a different lab I will see you back in 7 weeks to discuss results Coding Level of Care Code Est Pt Level 4 (72072) Diagnoses Elevated TSH R79.89 Rah's thyroiditis E06.3 Time Spent (min) 30
[2024-08-02 10:49] VITALS: BP 170/90; PULSE 70; BMI 28.9
== END 2024-08-02 11:34 | disposition home or self-care (01) ==
PROVIDERS: PCP Internal Medicine; Visit Provider Student in an Organized Health Care Education/Training Program
DX: R79.89 Other specified abnormal findings of blood chemistry (principal); E06.3 Autoimmune thyroiditis
CPT/HCPCS: 99214

== ENCOUNTER → 2024-08-02 10:48 | Outpatient (BNVA) | payer MEDICARE, SELFPAY | PROVIDERS: PCP Internal Medicine; Visit Provider Student in an Organized Health Care Education/Training Program | DX: E06.3 Autoimmune thyroiditis (principal); R79.89 Other specified abnormal findings of blood chemistry | CPT/HCPCS: 99212 ==

== ENCOUNTER 2024-08-26 18:23 | Emergency (ER) | payer MEDICARE, SELFPAY ==
[2024-08-26 18:43] VITALS: BP 205/82; PULSE 36; RESP 16; TEMP 36.7; O2SAT 96; BMI 30.2
--- NOTE | 2024-08-26 18:47 | ECG_ITS ---
Test Reason : bradycardia Blood Pressure : / mmHG Vent. Rate : 067 BPM Atrial Rate : 067 BPM P-R Int : 136 ms QRS Dur : 094 ms QT Int : 440 ms P-R-T Axes : 058 003 020 degrees QTc Int : 464 ms Sinus rhythm with frequent Premature ventricular complexes in a pattern of bigeminy Nonspecific ST abnormality Abnormal ECG When compared with ECG of 14-NOV-2011 15:58, No significant change was found Referred By: Shanice Pires Electronically Signed By:Stepan Toussaint
--- NOTE | 2024-08-26 18:49 | ED.EXTPRO ---
HPI - Extremity Problem General Chief complaint: Extremity Injury, Upper Stated complaint: rt arm fracture? coming from urgent care Time Seen by Provider: 08/26/24 18:53 Source: patient Mode of arrival: ambulatory Limitations: no limitations History of Present Illness ED Provider: Denisha Kahn NP HPI Narrative: Patient is a 74-year-old female who presents emergency department for evaluation. She reports a mechanical trip and fall earlier this morning resulting in injury to the right upper arm. She sought evaluation at urgent care which revealed a fracture to the right arm and was referred to the emergency department for further evaluation, she arrived with a sling in place. She denies any numbness tingling or cold sensation to the hand. She denies known prior injury to this arm. Reports pain is controlled so long as she is not moving it. During initial triage she was noted to be bradycardic, by patient's account she has a history of a cardiac arrhythmia which she describes as SVT that is episodic, has been on atenolol for quite some time, has not seen a local delivery driver in many years, with this in mind she says that her heart rate can be erratic at times in it is not uncommon for it to get very low as well. She has had a recent dosage change to her levothyroxine about 2 weeks ago, awaiting follow-up labs for re-evaluation. Related Data Home Medications ?Medication ?Instructions ?Recorded ?Confirmed cholecalciferol (vitamin D3) 25 25 mcg PO DAILY 08/09/20 08/02/24 mcg (1,000 unit) tablet magnesium 250 mg tablet 400 mg PO DAILY 08/09/20 08/02/24 mecobalamin (vitamin B12) 1,000 1,000 mcg PO DAILY 08/09/20 08/02/24 mcg chewable tablet Previous Rx's ?Medication ?Instructions ?Recorded atenolol 25 mg tablet 25 mg PO DAILY #90 tabs 04/26/24 oxybutynin chloride 10 mg 10 mg PO DAILY 30 days #90 tabs 04/26/24 tablet,extended release 24 hr levothyroxine 150 mcg tablet 150 mcg PO DAILY #30 tabs 07/20/24 (Synthroid) ferrous sulfate 325 mg (65 mg 325 mg PO BID 90 days #180 tabs 08/14/24 iron) tablet (Feosol) Allergies Allergy/AdvReac Type Severity Reaction Status Date / Time Sulfa (Sulfonamide Allergy Unknown UNKNOWN Verified 08/26/24 18:48 Antibiotics) [SULFA(SULFONAMIDE ANTIBIOTICS)] Review of Systems Review of Systems: Yes all other systems are reviewed and are negative [facility] Past Medical History Attestation statement: The following information was validated with the patient. Source: old records reviewed Medical History Rah's thyroiditis Overactive bladder Vitamin D deficiency Anemia Pain in right ankle and joints of right foot Elevated blood pressure reading Overweight (BMI 25.0-29.9) Primary osteoarthritis of right knee Cardiac arrhythmia Acquired hypothyroidism Pure hypercholesterolemia Surgical History History of cataract surgery Family History Family History Father Cancer Daughter Breast cancer Social History Social History Housing: House Alcohol intake: never Patient Tobacco Use Status: Never used Tobacco Smoked in Last 30 Days: No e-Cigarette/Vaping Use: Never Used Second Hand Smoke Exposure: Yes Use of substances other than those prescribed or required for medical reasons: No Advance Directives: Yes Advance Directives Information Provided: No Advance Directives on File: No Do you have a plan to hurt others: No Plan service: No Current occupational status: retired Cognitive needs: No Hearing needs: No Vision needs: Yes (Glasses) Physical Exam Vital Signs: Vital Signs: Last Vital Signs Temp 98.4 F 08/26/24 22:13 Pulse 107 H 08/26/24 22:13 Resp 18 08/26/24 22:13 BP 180/73 H 08/26/24 22:13 Pulse Ox 95 08/26/24 22:13 O2 Del Method Room Air 08/26/24 22:13 BMI result Body Mass Index 30.2 Appearance: Alert.?Oriented to person, place and time. No acute distress.?Normal affect. Eyes: Pupils equal, round and reactive to light.? ENT: Pharynx normal.?? Neck: Normal inspection.? Neck supple.?? CVS: Heart sounds normal. Irregular bradycardia with auscultated pulse of 42.? Pulses normal.?? Respiratory: No respiratory distress.? Lung sounds clear to auscultation bilaterally?? Abdomen: Soft and non-tender. Normoactive bowel sounds. Skin: Skin warm and dry.? Normal skin color.? Extremities: No extremity edema.? 2+ radial pulse bilaterally. CMS intact to right upper extremity. Arm immobilized in a sling. Diffuse tenderness throughout the proximal humerus. No obvious deformity. Neuro: Moves all extremities spontaneously. Sensation intact bilaterally. CN II-XII intact. No focal neuro deficits. Ambulates with normal steady gait. Course Course Course Narrative: This is a Rapid Medical Examination (RME) performed by Ruba Pires PA-C in triage. Full HPI, ROS, assessment and treatment plan per primary provider in the Main ED. 74 yo female here from urgent care for known displaced surgical neck fracture of right humerus. Patient reports trip and fall around 9:00 a.m. this morning. was evaluated at where XRs showed fracture. She was placed in sling and advised to come to the ED for further evaluation. + patient noted to be bradycardic to 34 in triage. BP 205/82. she does have history of bradycardia secondary to atenolol use however has never been this low. Well-appearing, in no acute distress. in sling. Plan: ekg, repeat xrs Reevaluation(s) Reevaluation #1: Serum labs overall unremarkable, elevated TSH with normal free T4, recommend staying the course with current most recent dosage change for levothyroxine and outpatient follow-up with the primary care doctor. Asymptomatic PVCs in a bigeminy pattern, advised outpatient follow-up with PCP, discussed strict return precautions/worrisome signs and symptoms that would warrant re-evaluation outpatient follow-up with her primary care doctor. Outpatient follow-up with orthopedics for the humeral neck fracture, remaining in a sling. All questions answered. Stable for discharge Medical Decision Making Medical Decision Making MDM Narrative: Patient is a 74-year-old female with past medical history of Rah thyroiditis, prior hypothyroidism with recent levothyroxine dosage change as per HPI, vitamin-D deficiency, anemia, osteoarthritis, hypercholesterolemia, cardiac arrhythmia who presents emergency department for further evaluation and management of a right proximal humerus fracture. I reviewed radiologist impression as well as XR imaging which has been provided below from the urgent care visit, a comminuted fracture of the proximal humerus involving the surgical neck with mild impaction. Extremities neurovascularly intact distally. She arrived bradycardic however asymptomatic, she states this is not atypical for her. Initial triage indicates a pulse of 36, my auscultation there was a pulse of 42 with a regular pattern. EKG revealing a sinus rhythm with frequent PVCs in a bigeminy pattern, calculated rate of 38, QTC 464, no ST elevation, no ST depression. I reviewed this case with my attending Dr. Moscoso who agrees with this interpretation, with this pattern of bigeminy PVCs in an asymptomatic patient, will exclude anemia, electrolyte abnormality, abnormal thyroid function, otherwise recommend outpatient follow-up with PCP/cardiology. Regarding the fracture to her humerus, upon review of the imaging, appropriate treatment be to remain in the sling that she is currently placed in and have outpatient follow-up with orthopedics. Differential Diagnosis Differential Diagnoses: The differential diagnosis associated with the presentation includes (See narrative above) Admission/Observation Consideration of admission/observation: Escalation of care including admission/observation considered (See narrative above and course narrative for further detail) Consult Healthcare Provider Management of the patient was discussed with: [employer]per Marixa KILLIAN ortho - outpatient follow-up Lab Data MDM Lab Attestation statement: I reviewed the patient's lab results. CBC without leukocytosis anemia or thrombocytopenia. No significant electrolyte derangement. No PREETI. TSH is elevated but free T4 remains within normal range. 08/26/24 19:36 08/26/24 19:36 Labs: Lab Results 08/26/24 Range/Units 19:36 WBC 9.3 (4.8-10.8) X10*3/uL RBC 3.97 L (4.20-5.50) X10*6/uL Hgb 12.2 (12.0-16.0) g/dl Hct 38.1 (37.0-47.0) % MCV 96.0 (80.0-98.0) fL MCH 30.7 (27.0-33.0) pg MCHC 32.0 (31.0-35.0) g/dl RDW 13.2 (11.0-16.0) % Plt Count 223 (160-400) X10*3/uL MPV 10.2 (9.4-12.3) fL Immature Gran % (Auto) 0.4 (0.0-0.4) % Neut % (Auto) 82.6 H (45-73) % Lymph % (Auto) 8.3 L (20-40) % [place] % (Auto) 7.1 (2-11) % Eos % (Auto) 1.3 (0-4) % Baso % (Auto) 0.3 (0-2) % Lymph # (Auto) 0.8 L (1.2-4.9) X10*3/uL [place] # (Auto) 0.7 (0.1-1.2) X10*3/uL Eos # (Auto) 0.1 (0.0-0.4) X10*3/uL Baso # (Auto) 0.0 (0.0-0.2) X10*3/uL Abs Immat Gran (auto) 0.04 H (0.00-0.03) X10*3/uL Absolute Neuts (auto) 7.7 (2.0-8.3) x10*3/uL Absolute Nucleated RBC 0.000 (0.0-0.012) X10*3/uL Nucleated RBC % (auto) 0.0 (0.0-0.2) /100WBC Sodium 143 (135-145) mmol/L Potassium 3.9 (3.3-5.1) mmol/L Chloride 109 H (96-108) mmol/L Carbon Dioxide 28 (22-29) mmol/L Anion Gap 10 L (12-20) BUN 18 H (9-16) mg/dL Creatinine 0.75 (0.5-1.4) mg/dL Estim Creat Clear Calc 72.4 Estimated GFR > 60 Random Glucose 119 H (60-115) mg/dL Calcium 9.1 (8.4-10.2) mg/dL Total Bilirubin 0.3 (0.0-1.0) mg/dL AST 22 (5-31) U/L ALT 13 (0-31) U/L Alkaline Phosphatase 70 (39-117) U/L Total Protein 6.8 (6.5-8.0) g/dL Albumin 3.4 L (3.5-5.0) g/dL TSH 8.40 H (0.32-4.0) uIU/mL Free T4 1.30 (0.71-1.85) ng/dL Independent Interpretation I performed an independent interpretation of an: Plain X-Ray (Independent interpretation of outpatient x-ray, comminuted fracture of the proximal humerus) External Record Review External record reviewed: Prior outpatient radiology Reviewed [facility]24; Findings: Soft tissue swelling is appreciable. There is a comminuted fracture of the proximal humerus with involvement of the greater tuberosity and surgical neck with mild impaction and displacement of cortical fragments. There are degenerative changes evident. No radiodense foreign bodies are identified. Impression: Proximal humeral fracture Discharge Plan Discharge Clinical Impression: Closed fracture of neck of right humerus, Asymptomatic PVCs Patient Disposition: Home, Self-Care Instructions: Arm Fracture in Adults (ED), Premature Ventricular Contractions (ED) Additional Instructions: On review of your x-ray imaging the appropriate treatment is to remain in the sling that you were provided from the urgent care. You should receive a call from the orthopedic office tomorrow morning if you do not hear from them please call their office in the afternoon their number has been provided for you with this discharge. Regarding your low heart rate today, your EKG reveals that you are having frequent PVCs in a bigeminy pattern, this causes your pulse rate to be low. Your blood work today was very reassuring, there was no electrolyte abnormality, your TSH remains elevated but your free T4 is normal. Police state the current course with your recent dosage change as per your primary care doctor and follow-up accordingly. Please have a conversation with your primary care doctor in regards to the frequent PVCs especially if you begin to experience symptoms such as palpitations, chest pain, dizziness or lightheadedness, feeling increasingly fatigued, shortness of breath, issues with low blood pressure. Prescriptions: No Action oxybutynin chloride 10 mg tablet extended release 24hr 10 mg PO DAILY 30 Days Qty: 90 1RF atenolol 25 mg tablet 25 mg PO DAILY Qty: 90 1RF levothyroxine [Synthroid] 150 mcg tablet 150 mcg PO DAILY Qty: 30 6RF ferrous sulfate [Feosol] 325 mg (65 mg iron) tablet 325 mg PO BID 90 Days Qty: 180 0RF magnesium 250 mg tablet 400 mg PO DAILY cholecalciferol (vitamin D3) 25 mcg (1,000 unit) tablet 25 mcg PO DAILY mecobalamin (vitamin B12) 1,000 mcg tablet,chewable 1,000 mcg PO DAILY Referrals: [facility] [place] Orthopedic Surgeons [Provider Group] (Humeral neck fracture) Interventions: ED Discharge Assessment Last Done: 08/26/24 22:13 Discharge Date/Time: 08/26/24 22:14 Print Language: Sinhala
[2024-08-26 19:20] VITALS: BP 175/81; PULSE 63; RESP 15; O2SAT 95
[2024-08-26 19:42] LABS: MANUAL DIFF FLAG NO
[2024-08-26 20:11] LABS: Alanine Aminotransferase 13 U/L (0-31); Albumin Level 3.4 g/dL (3.5-5.0); Alkaline Phosphatase 70 U/L (39-117); Anion Gap 10 (12-20); Aspartate Amino Transferase 22 U/L (5-31); Bilirubin Total 0.3 mg/dL (0.0-1.0); Blood Urea Nitrogen 18 mg/dL (9-16); Calcium 9.1 mg/dL (8.4-10.2); Carbon Dioxide 28 mmol/L (22-29); Chloride 109 mmol/L (96-108); Creatinine Clr Calc Pharmacy 72.4; Estimated Glomerular Filt Rate > 60; Glucose Random 119 mg/dL (60-115); Potassium 3.9 mmol/L (3.3-5.1); Sodium 143 mmol/L (135-145); Total Protein 6.8 g/dL (6.5-8.0)
[2024-08-26 20:37] LABS: Basophils Percent Auto 0.3 % (0-2); Eosinophils Absolute Auto 0.1 X10*3/uL (0.0-0.4); Eosinophils Percent Auto 1.3 % (0-4); Hematocrit 38.1 % (37.0-47.0); Hemoglobin 12.2 g/dl (12.0-16.0); Imm Gran Abs Auto 0.04 X10*3/uL (0.00-0.03); Imm Gran Pct Auto 0.4 % (0.0-0.4); Lymphocytes Absolute Auto 0.8 X10*3/uL (1.2-4.9); Lymphocytes Percent Auto 8.3 % (20-40); Mean Corpuscular Hemoglobin 30.7 pg (27.0-33.0); Mean Platelet Volume 10.2 fL (9.4-12.3); Monocytes Absolute Auto 0.7 X10*3/uL (0.1-1.2); Monocytes Percent Auto 7.1 % (2-11); Neutrophils Absolute Auto 7.7 x10*3/uL (2.0-8.3); Neutrophils Percent Auto 82.6 % (45-73); Platelet Count 223 X10*3/uL (160-400); Red Blood Count 3.97 X10*6/uL (4.20-5.50); Red Cell Distribution Width 13.2 % (11.0-16.0); White Blood Count 9.3 X10*3/uL (4.8-10.8)
[2024-08-26 22:13] VITALS: BP 180/73; PULSE 107; RESP 18; TEMP 36.9; O2SAT 95
== END 2024-08-26 22:14 | disposition home or self-care (01) ==
PROVIDERS: Nurse Practitioner Family; Emergency Provider Emergency Medicine; PCP Internal Medicine
DX: S42.211A Unspecified displaced fracture of surgical neck of right humerus, initial encounter for closed fracture (principal); M79.601 Pain in right arm; R00.1 Bradycardia, unspecified; R94.31 Abnormal electrocardiogram [ECG] [EKG]; X58.XXXA Exposure to other specified factors, initial encounter; Y93.89 Activity, other specified; Y92.89 Other specified places as the place of occurrence of the external cause; Y99.8 Other external cause status; Z79.899 Other long term (current) drug therapy
CPT/HCPCS: 36415; 80053; 84439; 84443; 85025; 93005; 99283; 99284

== ENCOUNTER → 2024-08-26 18:47 | Outpatient (BNV) | payer MEDICARE, SELFPAY | PROVIDERS: Emergency Provider Emergency Medicine; PCP Internal Medicine; Visit Provider Internal Medicine Cardiovascular Disease | DX: R00.1 Bradycardia, unspecified (principal) | CPT/HCPCS: 93010 ==

== ENCOUNTER 2024-09-08 12:35 | Outpatient (AMB) | payer MEDICARE, SELFPAY ==
--- NOTE | 2024-09-08 12:51 | MHC.OFFVIS ---
Vital Signs 09/08/24 13:08 Height 5 ft 7 in Weight 191 lb 2.252 oz BMI 29.9 BP 150/88 H Blood Pressure Location Lt brachial Position Sitting Pulse 72 Pulse Source Pulse Oximeter Intake Visit Reasons: Autoimmune thyroiditis Intake Note: Patient present today for autoimmune thyroiditis office visit. Housekeeping Staff Required: No Accompanied by: Self / Same As Patient Allergies Sulfa (Sulfonamide Antibiotics) [SULFA(SULFONAMIDE ANTIBIOTICS)] Allergy (Unknown, Verified 09/08/24 13:12) UNKNOWN HPI Comments Details: 73-year-old female here today for follow up of hypothyroidism. HPI from prior visit Diagnosis: at least 20 years ago Kayden on levothyroxine 125 mcg daily has been on it for at least a year. Takes 7 am. Waits an hour before eating. Has not missed any doses. blood work from 05/25/24 showed TSH of 15.4, which is elevated and normal free T4 of 0.98. Before that she had blood work done in December 2023 without showed elevated TSH of 8, with free T4 around the same range. No dose changes were made at this time. 06/08/24 Increased levothyroxine to 137 mcg daily Labs 07/20/24 :TSH still high at 12.01, free T4 still normal at 1.09 08/02/24: Increase levothyroxine to 150 mcg daily Interval history Currently taking 150 mcg of levothyroxine daily 08/26/2024: TSH still high but improved at 8.40, free T4 at 1.30., [facility] 09/01/2024 Free T4 1.38 (0.82-1.77) TSH 19.1 UiU per mL (0.45-4.5) Patient currently denies heat or cold intolerance, diarrhea or constipation, hair loss, palpitation, anxiety, weight changes, mood changes, low energy, changes in appearance of eyes or vision changes, tremors, increased diaphoresis or dry skin. ? Patient denies any difficulty swallowing, pain on swallowing or voice changes or difficulty breathing. Patient denies any history of childhood neck radiation. Denies having ever used lithium, amiodarone or biotin supplements. Patient denies any family history of thyroid cancer. Daughter and granddaughter have hypothyroidism. 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 Review of systems Constitutional: no fevers, chills or weight loss HEENT: no changes in vision Cardiac: No chest pain, discomfort or palpitations. Pulmonary: No SOB GI:No abdominal pain, no nausea or vomiting, no anorexia, no blood in stool : no burning micturition, dysuria or increase in urinary frequency Neurologic: No dizziness, no weakness in extremities MSK: no back pain or joint stiffness Physical exam General: sitting comfortably in no acute distress HEENT: normocephalic/atraumatic, , moist oral mucosa Neck: supple, symmetrical, no thyromegaly , no dorsocervical or supraclavicular fat pads Cardiac: normal heart sounds Pulm: normal breath sounds B/L, no added breath sounds Abd: not distended, no tenderness Extremities: no edema, no signs of myxedema, normal reflexes Laboratory Tests 01/07/19 05/10/19 09/13/19 08:00 10:20 08:10 TSH Free T4 1.09 1.21 1.39 Thyroid Peroxidase Ab 03/28/20 07/31/20 11/28/20 09:00 08:40 09:15 TSH 0.76 0.73 Free T4 1.26 1.41 1.22 Thyroid Peroxidase Ab 04/04/21 10/29/21 06/05/22 09:03 10:07 09:55 TSH 0.82 2.50 3.31 Free T4 1.44 1.16 Thyroid Peroxidase Ab 10/08/22 02/18/23 09/03/23 09:15 09:56 08:20 TSH 8.43 H 13.52 H 34.35 H Free T4 1.14 1.08 0.76 Thyroid Peroxidase Ab 12 H 01/07/24 05/25/24 07/20/24 08:50 09:04 08:37 TSH 8.05 H 15.49 H 12.01 H Free T4 0.96 0.98 1.09 Thyroid Peroxidase Ab Laboratory Tests 08/26/24 19:36 TSH 8.40 H Free T4 1.[facility]24 Free T4 1.38 (0.82-1.77) TSH 19.1 UiU per mL (0.45-4.5) [facility] Medical History Rah's thyroiditis Overactive bladder Vitamin D deficiency Anemia Pain in right ankle and joints of right foot Elevated blood pressure reading Overweight (BMI 25.0-29.9) Primary osteoarthritis of right knee Cardiac arrhythmia Acquired hypothyroidism Pure hypercholesterolemia Surgical History History of cataract surgery Family History Father Cancer Daughter Breast cancer Social History Housing: House Alcohol intake: never Patient Tobacco Use Status: Never used Tobacco e-Cigarette/Vaping Use: Never Used Second Hand Smoke Exposure: Yes service: No Current occupational status: retired Cognitive needs: No Hearing needs: No Vision needs: Yes (Glasses) Physical Exam Vital Signs: Last Vital Signs Pulse 72 09/08/24 13:08 BP 150/88 H 09/08/24 13:08 BMI result Body Mass Index 29.9 Assessment & Plan Assessment & Plan (1) Elevated TSH: Code(s): R79.89 - Other specified abnormal findings of blood chemistry Category: Medical Plan: see below (2) Rah's thyroiditis: Code(s): E06.3 - Autoimmune thyroiditis Category: Medical Plan: Patient with a history of Rah's thyroiditis for about 20 years, he used to be biochemically euthyroid 2-3 years ago, who has recently been noted to have elevated TSH levels. She was on levothyroxine 125 mcg daily for at least the past year. Her blood work from 05/25/2024 showed elevated TSH of 15.49 with normal free T4 of 0.98. She does not have any symptoms. Her weight based dosing comes out to be 136 mcg. On 06/08/2024 I increased her dosing to 137 mcg daily, subsequently most recent lab Labs 07/20/24 TSH still high at 12.01, free T4 still normal at 1.09 Labs 07/20/24 :TSH still high at 12.01, free T4 still normal at 1.09 08/02/24: Increased levothyroxine to 150 mcg daily 08/26/2024: TSH still high but improved at 8.40, free T4 at 1.30 [facility] 09/01/2024 Free T4 1.38 (0.82-1.77) TSH 19.1 UiU per mL (0.45-4.5) She endorses adherence to her therapy, and takes it appropriately. Given TSH at outside lab also elevated, it is important to think of other differentials, she could possibly have human anti mouse antibodies, though no interaction with mice, these antibodies are often prevalent in up to 10% of the population, we will check for human anti mouse antibodies. Plus we will see for lab can ? do Preincubation of the patient?s serum with nonimmune mouse antibodies (intended to eliminate the effect of HAMA) is an added step in the assay.? Patient verbalized understanding and is agreeable with the plan. Plan: -continue levothyroxine to 150 mcg daily -check TSH, free T4 pre incubation step plus human anti mouse antibodies today -check TSH, free T4 in in 3 months prior to next appointment Plan I spent 30 minutes in reviewing the record, seeing the patient and documenting in the medical record. Orders: Orders Other Ref Test - [facility] [place] Today R79.89 - Other specified abnormal findings of blood chemistry Other Ref Test - [facility] [place] 09/09/24 R79.89 - Other specified abnormal findings of blood chemistry TSH reflex Free T4 Today E06.3 - Autoimmune thyroiditis, R79.89 - Other specified abnormal findings of blood chemistry Patient Instructions: continue levothyroxine 150 mcg daily Do blood work I will see you in 3 months Coding Level of Care Code Est Pt Level 4 (90915) Diagnoses Elevated TSH R79.89 Rah's thyroiditis E06.3 Time Spent (min) 30
[2024-09-08 13:08] VITALS: BP 150/88; PULSE 72; BMI 29.9
== END 2024-09-08 13:46 | disposition home or self-care (01) ==
PROVIDERS: PCP Internal Medicine; Visit Provider Student in an Organized Health Care Education/Training Program
DX: R79.89 Other specified abnormal findings of blood chemistry (principal); E06.3 Autoimmune thyroiditis
CPT/HCPCS: 99214

== ENCOUNTER 2024-09-08 12:35 | Outpatient (REF) | payer MEDICARE, SELFPAY ==
[2024-09-08 15:00] LABS: Free T4 (Free Thyroxine) 1.45 ng/dL (0.71-1.85); Thyroid Stimulating Hormone 8.26 uIU/mL (0.32-4.0)
== END 2024-09-08 12:36 | disposition home or self-care (01) ==
LOC: HO.LAB 12:35
PROVIDERS: PCP Internal Medicine; Visit Provider Student in an Organized Health Care Education/Training Program
DX: R79.89 Other specified abnormal findings of blood chemistry (principal); E06.3 Autoimmune thyroiditis; E03.9 Hypothyroidism, unspecified
CPT/HCPCS: 36415; 83520; 84439; 84443; 99212

== ENCOUNTER 2024-09-13 10:04 | Outpatient (AMB) | payer MEDICARE, SELFPAY ==
--- NOTE | 2024-09-13 10:35 | MHC.OFFVIS ---
Intake Visit Reasons: ED f/u fx of the proximal humerus Intake Note: Izzy is a 74 year old right hand dominant female who presents today for a evaluation of her right humerus fx, DOI 08/26/24. Patient reports she went to water her plant when she tripped over her rug and landed on different pieces of furniture. She mentions that her pain is okay today. Allergies Sulfa (Sulfonamide Antibiotics) [SULFA(SULFONAMIDE ANTIBIOTICS)] Allergy (Unknown, Verified 09/13/24 10:37) UNKNOWN HPI HPI ED f/u fx of the proximal humerus: Details: 74-year-old [id number]-fzre-cxeezxdo female who presents in the office today, as a new patient, for an evaluation of proximal humerus fracture. The patient presented to the urgent care in [place] on 08/26/24 status post a mechanical trip and fall on the same day morning. X-rays of the right upper extremity were obtained in the urgent care, which revealed a right proximal humerus fracture. She was placed in a splint and was referred to the ED for further evaluation of the fracture. She was recommended to remain in the sling. She was referred to [facility] for further evaluation and treatment. While in the office today, the patient reports that she tripped over her rug and landed on different pieces of furniture while watering her plants.The patient has a medical history of cardiac arrhythmia, anemia, and Rah thyroiditis. [facility] Medical History Rah's thyroiditis Overactive bladder Vitamin D deficiency Anemia Pain in right ankle and joints of right foot Elevated blood pressure reading Overweight (BMI 25.0-29.9) Primary osteoarthritis of right knee Cardiac arrhythmia Acquired hypothyroidism Pure hypercholesterolemia Surgical History History of cataract surgery Family History Father Cancer Daughter Breast cancer Social History Housing: House Alcohol intake: never Patient Tobacco Use Status: Never used Tobacco e-Cigarette/Vaping Use: Never Used Second Hand Smoke Exposure: Yes service: No Current occupational status: retired Cognitive needs: No Hearing needs: No Vision needs: Yes (Glasses) Review of Systems Const All systems reviewed & are unremarkable except as noted in HPI and below Physical Exam Const General: cooperative and no acute distress Orientation/consciousness: patient oriented x3 Resp Effort & Inspection: normal respiratory effort and able to speak in complete sentences Cardio Peripheral pulses: Peripheral pulses 2+ throughout Skin General skin exam: no rashes or lesions noted Neuro General: patient oriented x3 Extrem Other: Right upper extremity: Normal to inspection. No ecchymosis, erythema, or edema. Able to perform flexion and extension at the elbow without pain. Able to make a closed fist. Normal deltoid sensation. Sensation intact. Capillary refill is brisk. Radial pulse intact. Office Procedures AMB Fracture Care Fracture Billing Code: Fracture Billing Code Assessment & Plan Assessment & Plan (1) Closed fracture of right proximal humerus: Code(s): S42.201A - Unspecified fracture of upper end of right humerus, initial encounter for closed fracture Category: Medical Plan Ms. Teixeira is a 74-year-old [id number]-ugcddlba female who presents in the office today, as a new patient, for an evaluation of proximal humerus fracture. The patient presented to the Urgent Care in [place] on 08/26/24 status post a mechanical trip and fall on the same day morning. X-rays of the right upper extremity were obtained in the Urgent Care, which revealed right proximal humerus fracture. She was placed in a slight and was referred to the ED for further evaluation of the fracture. She was recommended to remain in the sling. She was referred to [facility] for further evaluation and treatment. While in the office today, the patient reports that she tripped over her rug and landed on different pieces of furniture while watering her plants. The patient has a medical history of cardiac arrhythmia, anemia, Rah thyroiditis. The patient may use the sling for comfort. She was encouraged to come out of the sling multiple times per day to demonstrate elbow, hand, and wrist range of motion, as well as pendulum exercises, which were demonstrated to the patient while in the office today. She demonstrates good understanding. She will follow-up in 4 weeks and anticipate beginning physical therapy at that time. She was advised no lifting, pushing, or pulling with the right upper extremity. Follow-up will be in 4 weeks with repeat x-rays, or sooner if needed. X-rays of the right shoulder, which were obtained while in the office today and were reviewed by me, Amelia Marino PA-C, revealed: Proximal humerus fracture. X-rays of the right upper extremity, obtained on 09/13/24, revealed: Proximal humerus fracture. Orders: Orders XR shoulder RT min 2V 09/13/24 M25.519 - Pain in unspecified shoulder Patient Instructions: Scribed by Katie Feliciano medical staff services manager, for Amelia Marino PA-C on 09/13/24 at 11:25 am EST. Coding Level of Care Code New Pt Level 4 (79267) Complex EM visit Add On G2211 Diagnoses Closed fracture of right proximal humerus S42.201A CPT Codes Fracture Care - Fracture Billing Code: Fracture Billing Code ([id number])
== END 2024-09-13 10:56 | disposition home or self-care (01) ==
PROVIDERS: PCP Internal Medicine; Visit Provider Physician Assistant
DX: S42.201A Unspecified fracture of upper end of right humerus, initial encounter for closed fracture (principal)
CPT/HCPCS: 99203; G2211

== ENCOUNTER 2024-09-13 15:28 | Outpatient (REF) | payer MEDICARE, SELFPAY ==
--- NOTE | ~2024-09-13 | XR_ITS ---
ADDENDUM #1 Results Acknowledgement: Called office at 9:47 AM. Verbal results given to Sophy Morel, front office administrator. Per Sophy Morel, Amelia Marino PA-C has reviewed report. Mckenzie Arellano, 10/11/2024 10:05 AM Electronically signed by: Lorie Daugherty MD 10/11/2024 12:20 PM EST RP ORIGINAL REPORT EXAMINATION: XR SHOULDER, RIGHT CLINICAL INFORMATION: M25.519 - Pain in unspecified shoulder COMPARISON: None available. TECHNIQUE: Two views of the right shoulder. FINDINGS: Comminuted, impacted, displaced fracture of the humeral head/neck. Evaluation limited due to limited ability of the patient to cooperate for positioning. Diffuse demineralization. Degenerative changes in the acromioclavicular joint. IMPRESSION: Comminuted, impacted, displaced fracture of the humeral head/neck. Limited visualization. Additional imaging with CT scan or MRI recommended. This study was presented to me on October 11, 2024 for interpretation. PSA staff will provide results to referring provider at this time. Electronically signed by: Lorie Daugherty MD 10/11/2024 06:39 AM EST RP XR/XR shoulder RT min 2V
== END 2024-09-13 15:29 | disposition home or self-care (01) ==
LOC: HO.HOSX 15:28
PROVIDERS: Visit Provider Physician Assistant
DX: M25.511 Pain in right shoulder (principal); S42.201A Unspecified fracture of upper end of right humerus, initial encounter for closed fracture
CPT/HCPCS: 73030; 99202

== ENCOUNTER 2024-10-06 09:11 | Outpatient (REF) | payer MEDICARE, SELFPAY ==
[2024-10-06 10:39] LABS: MANUAL DIFF FLAG NO
[2024-10-06 10:44] LABS: Basophils Percent Auto 0.4 % (0-2); Eosinophils Absolute Auto 0.2 X10*3/uL (0.0-0.4); Hematocrit 40.8 % (37.0-47.0); Hemoglobin 13.1 g/dl (12.0-16.0); Imm Gran Abs Auto 0.03 X10*3/uL (0.00-0.03); Imm Gran Pct Auto 0.3 % (0.0-0.4); Lymphocytes Absolute Auto 1.1 X10*3/uL (1.2-4.9); Lymphocytes Percent Auto 12.2 % (20-40); Mean Corpuscular HGB Conc 32.1 g/dl (31.0-35.0); Mean Corpuscular Hemoglobin 30.9 pg (27.0-33.0); Mean Corpuscular Volume 96.2 fL (80.0-98.0); Mean Platelet Volume 9.7 fL (9.4-12.3); Monocytes Absolute Auto 0.7 X10*3/uL (0.1-1.2); Monocytes Percent Auto 7.8 % (2-11); Neutrophils Absolute Auto 7.1 x10*3/uL (2.0-8.3); Neutrophils Percent Auto 77.3 % (45-73); Platelet Count 216 X10*3/uL (160-400); Red Blood Count 4.24 X10*6/uL (4.20-5.50); Red Cell Distribution Width 14.2 % (11.0-16.0); White Blood Count 9.2 X10*3/uL (4.8-10.8)
[2024-10-06 10:46] LABS: Appearance Urine Clear; Color Urine Yellow; Glucose Urine UA Negative (Negative); Leukocyte Esterase Urine Small (1+) (Negative); Nitrite Urine Negative (Negative); PH 6.5 (5.0-9.0); UMIC TRIGGER UACC YES; Urine Blood Trace (Negative); Urine Ketones Negative (Negative); Urine Protein Negative (Neg-Trace)
[2024-10-06 10:49] LABS: Bacteria Urine 1+ (None Seen); Hyaline Casts Urine 0-2 /LPF (0-2); UACC Culture Trigger YES
[2024-10-06 11:22] LABS: Alanine Aminotransferase 10 U/L (0-31); Albumin Level 3.7 g/dL (3.5-5.0); Alkaline Phosphatase 82 U/L (39-117); Anion Gap 10 (12-20); Aspartate Amino Transferase 21 U/L (5-31); Bilirubin Total 0.5 mg/dL (0.0-1.0); Blood Urea Nitrogen 14 mg/dL (9-16); Calcium 9.3 mg/dL (8.4-10.2); Carbon Dioxide 29 mmol/L (22-29); Chloride 107 mmol/L (96-108); Cholesterol 209 mg/dL (<200); Estimated Glomerular Filt Rate > 60; Glucose Fasting 90 mg/dL (60-99); HDL Cholesterol 43 mg/dL (>40); LDL Cholesterol Calculated 144 mg/dL (<100); Potassium 4.1 mmol/L (3.3-5.1); Sodium 142 mmol/L (135-145); Total Protein 7.4 g/dL (6.5-8.0); Triglycerides 110 mg/dL (<150)
[2024-10-06 11:26] LABS: Free T4 (Free Thyroxine) 1.19 ng/dL (0.71-1.85); Thyroid Stimulating Hormone 10.45 uIU/mL (0.32-4.0); Vitamin D 25-OH Total 34.4 ng/mL (>30)
== END 2024-10-06 09:12 | disposition home or self-care (01) ==
LOC: HO.10HDL 09:11
PROVIDERS: Visit Provider Internal Medicine
DX: E03.9 Hypothyroidism, unspecified (principal); E06.3 Autoimmune thyroiditis; D64.9 Anemia, unspecified; E55.9 Vitamin D deficiency, unspecified; E78.00 Pure hypercholesterolemia, unspecified; R30.0 Dysuria
CPT/HCPCS: 36415; 80053; 80061; 81001; 82306; 84439; 84443; 85025; 87086; 87088; 87147; 87186

== ENCOUNTER 2024-10-11 09:39 | Outpatient (AMB) | payer MEDICARE, SELFPAY ==
[2024-10-11 09:47] VITALS: BP 126/80; PULSE 64; TEMP 36.2; O2SAT 98; BMI 29.4
--- NOTE | 2024-10-11 09:47 | A.OFFPC_ITS ---
Vital Signs 10/11/24 09:47 Height 5 ft 7 in Weight 188 lb BMI 29.4 BP 126/80 Blood Pressure Location Lt brachial Position Sitting Pulse 64 Pulse Source Pulse Oximeter Temp 97.1 F Temp Source Temporal Artery Scan Pulse Oximetry (%) 98 Oxygen Delivery Method Room Air Intake Visit Reasons: 4 month f/u Pace Analyst Required: No Accompanied by: Self / Same As Patient Allergies Sulfa (Sulfonamide Antibiotics) [SULFA(SULFONAMIDE ANTIBIOTICS)] Allergy (Unknown, Verified 10/11/24 10:48) UNKNOWN Medication List - Last Reconciled 10/11/24 by Yuri Mcgrath MD atenolol 25 mg PO DAILY cholecalciferol (vitamin D3) 25 mcg PO DAILY ferrous sulfate (Feosol) 325 mg PO BID 90 days levothyroxine (Synthroid) 150 mcg PO DAILY magnesium 400 mg PO DAILY mecobalamin (vitamin B12) 1,000 mcg PO DAILY oxybutynin chloride ER 10 mg PO DAILY 30 days Tobacco use date assessed: 10/11/24 Fall risk assessment: 1 Fall in past year Last assessed Fall Risk: 10/11/24 Dental Screening Dental Screen Date: 10/11/24 Did you have a dental visit in the last 12 months?: Yes Did you have a dental problem in the last 6 months where you did not have access to dental care?: No Was dental information given to patient?: Patient has dentist HPI 4 month f/u HPI Details Patient comes in today for her follow up visit States that she currently feels okay Her right arm is still in a sling at present - states that she only has some lingering discomfort and mild pain in her right shoulder now and does not even have to take any Tylenol lately She is still following up with orthopedics and has not yet been cleared for physical therapy but she thinks that she will be cleared soon She relates that she tripped over a loose rug at home about a month and a half ago (08/26/2024) when she was trying to water her plants and ended up landing on different pieces of furnitures She initially went to urgent care after her fall, where x-rays done revealed the comminuted, impacted, displaced fracture of the humeral head/neck A right shoulder sling was placed and she was recommended to stay with the sling until she is evaluated by orthopedics She was seen by orthopedics a couple of weeks later on 09/13/2024 and was advised at the time on some ROM exercises, including pendulum exercises, a few times a day as tolerated, and she will be reassessed in 4 weeks' time, with anticipation of initiation of physical therapy then She was relieved that no surgery was recommended as she recalled her 's (who a couple of years ago) poor outcome with shoulder replacement surgery years ago Patient denies any headaches or dizziness Denies any chest pains, no SOB No nausea/vomiting, no abdominal pain No change in bowel habits noted She had her follow up labs done a few days ago - to discuss her results [facility] Medical History Rah's thyroiditis Overactive bladder Vitamin D deficiency Anemia Pain in right ankle and joints of right foot Elevated blood pressure reading Overweight (BMI 25.0-29.9) Primary osteoarthritis of right knee Cardiac arrhythmia Acquired hypothyroidism Pure hypercholesterolemia Surgical History History of cataract surgery Family History Father Cancer Daughter Breast cancer Social History Housing: House Alcohol intake: never Patient Tobacco Use Status: Never used Tobacco e-Cigarette/Vaping Use: Never Used Second Hand Smoke Exposure: Yes service: No Current occupational status: retired Cognitive needs: No Hearing needs: No Vision needs: Yes (Glasses) Questionnaire PHQ-9 Over the last 2 weeks, how often have you been bothered by any of the following problems? 1. Little interest or pleasure in doing things: not at all 2. Feeling down, depressed, or hopeless: not at all 3. Trouble falling or staying asleep, or sleeping too much: not at all 4. Feeling tired or having little energy: not at all 5. Poor appetite or overeating: not at all 6. Feeling bad about yourself - or that you are a failure or have let yourself or your family down: not at all 7. Trouble concentrating on things, such as reading the newspaper or watching television: not at all 8. Moving or speaking so slowly that other people could have noticed. Or the opposite - being so fidgety or restless that you have been moving around a lot more than usual: not at all 9. Thoughts that you would be better off or of hurting yourself in some way: not at all Total score: 0 Depression Screening Interpretation: Negative Depression Screening Done: Yes 39941 - PHQ-9 Billing: Yes Source: Developed by Drs. Marv Yao, Dolores Escalante, Joseph Adams and colleagues, with an educational keshav from [employer]. Thrive Questionnaire Date Thrive assessed: 10/11/24 I am a: Patient What is your living situation today?: I have a steady place to live Within the past 12 months, did the food you bought not last and you didn't have the money to get more?: Never true Within the past 12 months, did you worry whether your food would run out before you got money to buy more?: Never true Do you have trouble paying for medicines?: No Do you have trouble getting transportation to medical appointments?: No Do you have trouble paying your heating and electricity bill?: No Do you have trouble taking care of your child, family member or friend?: No Do you have trouble with day-to-day activities such as bathing, preparing meals, shopping, managing finances, etc.?: No Are you currently unemployed and looking for a job?: No Are you interested in more education?: No Please select the resources that you would like help with: None Currently or been in a relationship where the following occur: No concerns reported THRIVE Score: 0 AUDIT C Alcohol Use Questionnaire (AUDIT-C) 1. How often do you have a drink containing alcohol?: Never 3. How often do you have six or more drinks on one occasion?: Never Total Score: 0 Score Reviewed/Action Taken: Yes BHAVANI-7 AMB Questionnaire BHAVANI-7 Date BHAVANI - 7 assessed: 10/11/24 Feeling nervous, anxious, or on edge: 0 = Not at all Not being able to stop or control worryin = Not at all Worrying too much about different things: 0 = Not at all Trouble relaxin = Not at all Being so restless that it is hard to sit still: 0 = Not at all Becoming easily annoyed or irritable: 0 = Not at all Feeling afraid as if something awful might happen: 0 = Not at all Total BHAVANI-7 score (0-4 normal; 5-9 mild; 10-14 moderate; 15-21 severe): 0 Source: Developed by Drs. Marv Yao, Dolores Escalante, Joseph Adams and colleagues, with an educational keshav from [employer]. Review of Systems Const Denies chills, Denies fatigue, Denies fever(s) and Denies headache(s) ENT Denies dysphagia, Denies dizziness, Denies otalgia, Denies headache(s), Denies neck pain, Denies odynophagia and Denies sore throat Card Denies chest pain, Denies palpitations and Denies dyspnea Resp Denies chest congestion, Denies cough and Denies dyspnea GI Denies abdominal pain, Denies constipation, Denies dysphagia, Denies heartburn, Denies diarrhea, Denies nausea, Denies odynophagia and Denies vomiting Denies difficulty voiding, Denies nocturia, Denies dysuria, Reports urinary incontinence (occasional urge incontinence) and Denies urinary urgency Musc Details: right arm is currently still in a sling Denies back pain, Reports arthralgias (right shoulder - mild (see HPI)) and Denies neck pain Skin/Breast Denies rash Neuro Denies dizziness and Denies headache(s) Psych Denies anxiety and Denies depression Endo Denies fatigue and Denies palpitations Yosvany/Lymph Denies easy bruising Physical exam (Primary Care) Vital Signs: Last Vital Signs Temp 97.1 F 10/11/24 09:47 Pulse 64 10/11/24 09:47 BP 126/80 10/11/24 09:47 Pulse Ox 98 10/11/24 09:47 Oxygen Delivery Method Room Air 10/11/24 09:47 BMI result Body Mass Index 29.4 Tobacco/Smoking Status: Tobacco use Status Tobacco use date assessed 10/11/24 10/11/24 09:49 Patient Tobacco Use Status Never used Tobacco 10/11/24 09:49 e-Cigarette/Vaping Use Never Used 10/11/24 09:49 PHQ-9: PHQ-9 Score PHQ-9: Total score 0 10/11/24 09:49 Depression Screening Interpretation: Negative Thrive Assessment: Date of Thrive Assessment Date Thrive assessed 10/11/24 10/11/24 09:49 Currently or been in a relationship where the following occur: No concerns reported Const General: no acute distress and alert HENMT Ears: TM's normal bilaterally and EAC's normal Throat: Yes posterior oropharynx normal and Yes tonsils normal (no TP congestion) Neck Neck: Yes supple and No lymphadenopathy Thyroid: Thyroid normal Resp Auscultation: clear to auscultation bilaterally, no rales and no wheezes Cardio Rate: regular rate Rhythm: abnormal rhythm with ectopic beats Heart sounds: no murmurs GI Palpation (GI): Soft to palpation and nontender Auscultation: normal bowel sounds General: Yes no CVA tenderness Back/Spine/Pelvis Back: no CVA tenderness Thoracic/Lumbar Spine: No lumbar spinal tenderness Skin Rashes: no rashes Extrem General: Yes no clubbing, cyanosis or edema Right upper extremity: shoulder/upper arm (right arm is still immobilized in a shoulder sling) Details: tenderness Location: of the A-C joint Results Reviewed Results Reviewed: Laboratory Tests 10/06/24 09:20 WBC 9.2 Hgb 13.1 Hct 40.8 Plt Count 216 Sodium 142 Potassium 4.1 Creatinine 0.71 Estimated GFR > 60 Fasting Glucose 90 Calcium 9.3 AST 21 ALT 10 Triglycerides 110 Cholesterol 209 H LDL Cholesterol, Calc 144 H HDL Cholesterol 43 25-OH Vitamin D Total 34.4 TSH 10.45 H Free T4 1.19 Ur Specific [place] 1.020 Urine Protein Negative Urine Glucose (UA) Negative Urine Blood Trace H Urine Nitrite Negative Ur Leukocyte Esterase Small (1+) H Coding Level of Care Code Est Pt Level 4 (95505) Complex EM visit Add On G2211 Diagnoses Pure hypercholesterolemia E78.00 Rah's thyroiditis E06.3 Cardiac arrhythmia, unspecified cardiac arrhythmia type I49.9 Arrhythmia type: unspecified cardiac arrhythmia Elevated blood pressure reading R03.0 Vitamin D deficiency E55.9 Primary osteoarthritis of right knee M17.11 Closed fracture of proximal end of right humerus, unspecified fracture morpholog y, sequela S42.201S Encounter type: sequela Fracture morphology: unspecified fracture morphology Pain in right ankle and joints of right foot M25.571 Anemia, unspecified type D64.9 Anemia type: unspecified type Overactive bladder N32.81 Overweight (BMI 25.0-29.9) E66.3 Additional Codes PHQ-9 - 25907 - PHQ-9 Billing: Yes ([id number]) Assessment & Plan Assessment & Plan (1) Pure hypercholesterolemia: Code(s): E78.00 - Pure hypercholesterolemia, unspecified Category: Medical Plan: Results of her labs done a few days ago reviewed and discussed with patient - her total and LDL cholesterol levels are both still elevated and have increased slightly/minimally from previous Reinforced low cholesterol diet Patient continues to decline pharmacotherapy for her cholesterol and would just like to continue with diet modification and lifestyle changes at this time Will recheck her labs and fasting lipids in 4 months for follow up (2) Rah's thyroiditis: Code(s): E06.3 - Autoimmune thyroiditis Category: Medical Plan: TSH is still elevated on her recent labs; her free T4 level remains normal - findings are consistent with Rah's thyroiditis Patient is currently clinically euthyroid Continue Levothyroxine 150 mcg QD Follow up with endocrinology as scheduled - she is now seeing Dr. Oneal and is currently being worked up for human anti-mouse antibodies (3) Cardiac arrhythmia: Code(s): I49.9 - Cardiac arrhythmia, unspecified Category: Medical Qualifiers: Arrhythmia type: unspecified cardiac arrhythmia Qualified Code(s): I49.9 - Cardiac arrhythmia, unspecified Plan: Stable with no recurrence of symptoms - exam today still reveals (+) occasional ectopic beats EKG done in the past (2008) revealed (+) occasional PVCs Continue Atenolol 25 mg QD (4) Elevated blood pressure reading: Code(s): R03.0 - Elevated blood-pressure reading, without diagnosis of hypertension Category: Medical Plan: Patient's blood pressure today appears much better controlled Her BP at home is also usually normal? (systolic BP is often around 120 to 130 mm) Patient appears to have a component of white coat syndrome although her blood pressure in the office today is again good at 126/80 Reinforced low sodium diet She is reminded to continue monitoring her blood pressure regularly - goal is systolic BP of at least 130 to 140 mm or less (5) Vitamin D deficiency: Code(s): E55.9 - Vitamin D deficiency, unspecified Category: Medical Plan: Continue Vitamin D3 1000 units QD (6) Primary osteoarthritis of right knee: Comment: X-rays of the right knee done back in 2016 already showed (+) moderate to severe OA changes Code(s): M17.11 - Unilateral primary osteoarthritis, right knee Category: Medical Plan: X-rays of the right knee done back in 2016 already showed (+) moderate to severe OA changes States that her knee pain has improved a lot with cortisone injection from orthopedics recently Follow up with orthopedics as scheduled (7) Closed fracture of right proximal humerus: Code(s): S42.201A - Unspecified fracture of upper end of right humerus, initial encounter for closed fracture Category: Medical Qualifiers: Encounter type: sequela Fracture morphology: unspecified fracture morphology Qualified Code(s): S42.201S - Unspecified fracture of upper end of right humerus, sequela Plan: Patient reportedly tripped over a loose rug at home about a month and a half ago (08/26/2024) when she was trying to water her plants and ended up landing on different pieces of furnitures She initially went to urgent care after her fall, where x-rays done revealed the comminuted, impacted, displaced fracture of the humeral head/neck A right shoulder sling was placed and she was recommended to stay with the sling until she is evaluated by orthopedics She was seen by orthopedics a couple of weeks later on 09/13/2024 and was advised at the time on some ROM exercises, including pendulum exercises, a few times a day as tolerated, and she will be reassessed in 4 weeks' time, with anticipation of initiation of physical therapy then No surgery has been recommended for her shoulder at this time (8) Pain in right ankle and joints of right foot: Comment: X-rays of the foot done in 2019 showed (+) bunion, mild OA changes and (+) calcaneal spur Code(s): M25.571 - Pain in right ankle and joints of right foot Category: Medical Plan: X-rays of the foot done a couple of years ago showed (+) bunion, mild OA changes and (+) calcaneal spur She was seen by podiatry last year and was advised that her foot symptoms may also be partly due to the way she is walking as a result of her right knee OA - she may be subconsciously trying to compensate by walking differently than she normally does and this is aggravating her foot symptoms Follow up with podiatry as scheduled (9) Anemia: Code(s): D64.9 - Anemia, unspecified Category: Medical Qualifiers: Anemia type: unspecified type Qualified Code(s): D64.9 - Anemia, unspecified Plan: Corrected - her H/H have remained normal on her recent labs Continue Feosol 65 mg 1 tablet BID Will recheck her CBC in 3 to 4 months for follow up Cologuard done back in August 2020 came back?NEGATIVE - is advised that she should repeat this again sometime soon Patient now recalls having another Cologuard test done more recently - we still have not been able to locate this for documentation (10) Overactive bladder: Code(s): N32.81 - Overactive bladder Category: Medical Plan: Continue Oxybutynin ER 10 mg QD Her urine culture grew (+) E. coli along with group B strep (group B strep is usually a benign finding) at her last visit and again is positive for E. coli and group B strep recently We tried treating her empirically for the E. coli in her urine culture last time with Macrodantin 100 mg BID x 7 days but it did not appear to have made any difference and with patient being practically asymptomatic, will not start her on any more Abx at this time (11) Overweight (BMI 25.0-29.9): Code(s): E66.3 - Overweight Category: Medical Plan: Reinforced diet/exercise as tolerated/lose weight Plan Follow up in 4 months Orders: Orders Complete Blood Count Auto Diff 4 Months D64.9 - Anemia, unspecified Comprehensive [place]. Panel Fast 4 Months E78.00 - Pure hypercholesterolemia, unspecified UA CC w/rflx Micro + Cult 4 Months R30.0 - Dysuria Lipid Panel 4 Months E78.00 - Pure hypercholesterolemia, unspecified Vitamin B12 and Folate 4 Months E53.8 - Deficiency of other specified B group v itamins Vitamin D 25-OH Total 4 Months E55.9 - Vitamin D deficiency, unspecified
== END 2024-10-11 11:00 | disposition home or self-care (01) ==
PROVIDERS: PCP Internal Medicine; Visit Provider Internal Medicine
DX: E78.00 Pure hypercholesterolemia, unspecified (principal); E06.3 Autoimmune thyroiditis; I49.9 Cardiac arrhythmia, unspecified; R03.0 Elevated blood-pressure reading, without diagnosis of hypertension; E55.9 Vitamin D deficiency, unspecified; M17.11 Unilateral primary osteoarthritis, right knee; S42.201S Unspecified fracture of upper end of right humerus, sequela; M25.571 Pain in right ankle and joints of right foot; D64.9 Anemia, unspecified; N32.81 Overactive bladder; E66.3 Overweight

== ENCOUNTER → 2024-10-11 09:39 | Outpatient (BNVA) | payer MEDICARE, SELFPAY | PROVIDERS: PCP Internal Medicine; Visit Provider Internal Medicine | DX: E78.00 Pure hypercholesterolemia, unspecified (principal); E06.3 Autoimmune thyroiditis; I49.9 Cardiac arrhythmia, unspecified; R03.0 Elevated blood-pressure reading, without diagnosis of hypertension; E55.9 Vitamin D deficiency, unspecified; M17.11 Unilateral primary osteoarthritis, right knee; S42.201S Unspecified fracture of upper end of right humerus, sequela; M25.571 Pain in right ankle and joints of right foot; D64.9 Anemia, unspecified; E66.3 Overweight; N32.81 Overactive bladder | CPT/HCPCS: 96127; 99212 ==

== ENCOUNTER 2024-10-15 08:37 | Outpatient (REF) | payer MEDICARE, SELFPAY ==
--- NOTE | ~2024-10-15 | XR_ITS ---
EXAMINATION: XR SHOULDER 2 OR MORE VIEWS RIGHT HISTORY: M25.519 - Pain in unspecified shoulder COMPARISON: Comparison is made with the prior examination dated 09/13/2024. FINDINGS: Two views of the right shoulder are submitted. Osseous mineralization is normal. Again seen is a comminuted impacted fracture of the surgical neck of the humerus. Callus formation is seen on the current study, consistent with healing. The glenohumeral joint is not well evaluated. There is moderate osteoarthritis of the AC joint with joint space narrowing and osteophyte formation. The soft tissues are unremarkable. XR/XR shoulder RT min 2V IMPRESSION: Healing comminuted impacted fracture of the surgical neck of humerus. Electronically signed by: Marv Voss MD 10/18/2024 07:01 AM SINGH
== END 2024-10-15 08:38 | disposition home or self-care (01) ==
LOC: HO.HOSX 08:37
PROVIDERS: Visit Provider Physician Assistant
DX: M25.511 Pain in right shoulder (principal); S42.214D Unspecified nondisplaced fracture of surgical neck of right humerus, subsequent encounter for fracture with routine healing
CPT/HCPCS: 73030; 99212

== ENCOUNTER 2024-10-15 12:38 | Outpatient (AMB) | payer MEDICARE, SELFPAY ==
--- NOTE | 2024-10-15 13:11 | MHC.OFFVIS ---
Vital Signs 10/15/24 13:14 Height 5 ft 7 in Weight 188 lb BMI 29.4 Handedness Right Intake Visit Reasons: OV - right humerus fx, DOI 08/26/24 Intake Note: Izzy is a 74 year old right hand dominant female who presents today for a evaluation of her right humerus fx, DOI 08/26/24. Patient reports little no pain at the moment. She notices that her hand is swollen and her right thumb is a bit sore. Check on PT order! Allergies Sulfa (Sulfonamide Antibiotics) [SULFA(SULFONAMIDE ANTIBIOTICS)] Allergy (Unknown, Verified 10/11/24 10:48) UNKNOWN HPI HPI OV - right humerus fx, DOI 08/26/24: Details: Patient presents to the office today for routine follow-up status post right proximal humerus fracture. Date of injury was 08/26/2024. Patient is doing very well overall. She has noticed a decrease in her pain and increase in her range of motion. She is using the sling today for protection. [facility] Medical History Rah's thyroiditis Overactive bladder Vitamin D deficiency Anemia Pain in right ankle and joints of right foot Elevated blood pressure reading Overweight (BMI 25.0-29.9) Primary osteoarthritis of right knee Cardiac arrhythmia Acquired hypothyroidism Pure hypercholesterolemia Surgical History History of cataract surgery Family History Father Cancer Daughter Breast cancer Social History Housing: House Alcohol intake: never Patient Tobacco Use Status: Never used Tobacco e-Cigarette/Vaping Use: Never Used Second Hand Smoke Exposure: Yes service: No Current occupational status: retired Cognitive needs: No Hearing needs: No Vision needs: Yes (Glasses) Review of Systems Const All systems reviewed & are unremarkable except as noted in HPI and below Physical Exam Vital Signs: BMI result Body Mass Index 29.4 Const General: cooperative, healthy appearing and no acute distress Resp Effort & Inspection: normal respiratory effort and able to speak in complete sentences Cardio Rate: regular rate Peripheral pulses: Peripheral pulses 2+ throughout Skin Lesions: no lesions Rashes: no rashes Extrem Other: Right shoulder able to reach the top side of her head, able to reach her mouth, and able to reach greater troch. Able to perform wrist flexion and extension. Sensation intact. NVI. Assessment & Plan Assessment & Plan (1) Closed fracture of right proximal humerus: Code(s): S42.201A - Unspecified fracture of upper end of right humerus, initial encounter for closed fracture Category: Medical Qualifiers: Encounter type: sequela Fracture morphology: unspecified fracture morphology Qualified Code(s): S42.201S - Unspecified fracture of upper end of right humerus, sequela Plan Patient presents to the office today for routine follow-up status post right proximal humerus fracture. Date of injury was 08/26/2024. Patient is doing very well overall. She has noticed a decrease in her pain and increase in her range of motion. She is using the sling today for protection. While in the office today we discussed the role of physical therapy. Patient is amenable to begin range of motion with physical therapy. She should continue wearing the sling only for comfort. Encouraged to come out and perform [id number] exercises. She will follow up in 6 weeks with repeat x-rays, sooner if needed. X-rays of the right shoulder which were obtained while in the office today and were reviewed by me, Amelia Marino PA-C, revealed routine healing right proximal humerus fracture. Orders: Orders XR shoulder RT min 2V Today M25.519 - Pain in unspecified shoulder PT Evaluation and Treatment Today S42.201S - Unspecified fracture of upper end of right humerus, sequela Coding Level of Care Code Global (32647) Diagnoses Closed fracture of proximal end of right humerus, unspecified fracture morphology, sequela S42.201S Encounter type: sequela Fracture morphology: unspecified fracture morphology
[2024-10-15 13:14] VITALS: BMI 29.4
== END 2024-10-15 13:24 | disposition home or self-care (01) ==
PROVIDERS: PCP Internal Medicine; Visit Provider Physician Assistant
DX: S42.201D Unspecified fracture of upper end of right humerus, subsequent encounter for fracture with routine healing (principal)
CPT/HCPCS: 99213

== ENCOUNTER → 2024-10-15 12:55 | Outpatient (BNV) | payer MEDICARE, SELFPAY | PROVIDERS: Visit Provider Radiology Diagnostic Radiology | DX: M25.511 Pain in right shoulder (principal) | CPT/HCPCS: 73030 ==

== ENCOUNTER 2024-11-17 10:00 | Outpatient (RCR) | payer MEDICARE, SELFPAY ==
--- NOTE | 2024-11-03 12:30 | MHC.PT.EP ---
[facility] [place] [facility] [place] [facility] [place] [facility] [address] Keshia [place] [address] [phone] F: [phone] F: [phone] F: [phone] F: [phone] Physical Therapy Plan of Care Date of Evaluation: 11/03/24 Date of Surgery: Diagnosis: This is a 74 yo female presenting to skilled PT with a script for fracture of upper end of R humerus. Assessment: This is a 74 yo female presenting to skilled PT with a script for fracture of upper end of R humerus. DOI 08/26/24 when she tripped over her vacuum and landed on her rocking chair. She is being followed by [facility] ortho and the last note states: She should continue wearing the sling only for comfort. Encouraged to come out and perform [id number] exercises. She will follow up in 6 weeks with repeat x-rays, sooner if needed. Patient is here today reporting little no pain but has swelling at the hand and wrist that comes and goes that is uncomfortable at times. She also endorses mild pains and swelling at the fracture sight too. She is limited with her ADLs, housework and driving. She has been wearing her sling 24-7 minus when she is doing exercises. Assessment reveals pain that ranges from up to a 2/10 at the worst. Patient demos decreased R shoulder ROM and decreased cervical ROM, strength of B shoulders but R is worse than L, TTP at GHJ joint line, lateral arm and impaired posture with forward head and rounded shoulders, anterior GHJ and IR arm. Based on functional limitations, impaired QOL and pain tolerance patient is a fair candidate for skilled PT 2x/wk for 8 wks. Frequency and Duration: The patient will be seen 2x/wk for 8wks Short Term Goals: (In 2 weeks) Demo I with HEP Improve shoulder AAROM by at least 25 degs Improve shoulder PROM by at least 25% Demo proper scapular recruitment with appropriate shoulder strengthening exercises [facility] Goals: (in 8 wks) Improve shoulder nonpainful AROM to at least 120 degs flexion and abduction, 45 degs ER Demo improvement in MMT for shoulder to at least 3+ Improve SPADI by at least 10 points Improve overall functional QOL by at least 50% Treatment Plan: Modalities to reduce pain, spasms and effusion. Manual therapy to restore motion and function. Therapeutic exercise to improve strength and flexibility. Neuromuscular re-education for posture and balance. Therapeutic activities to return to functional activities of daily living. Electronically signed by: Anali Solomon PT Please sign and return to therapist. Thank you for your referral.
--- NOTE | 2024-11-29 10:37 | MHC.PT.DC ---
[facility] [place] Office [place] Office [place] Office [address] Keshia Cordoba [address] [phone] F: [phone] F: [phone] F: [phone] F: [phone] Physical Therapy Discharge Report Diagnosis: This is a 74 yo female presenting to skilled PT with a script for fracture of upper end of R humerus. Date of Surgery: Date of Evaluation: 11/03/24 Date of Discharge: 11/29/24 Treatments to Date: 3 Cancellations to Date: 0 No Shows to Date: 0 Discharge Status: Discharge Summary: Patient , tx was discontinued. Electronically signed by: Anali Solomon PT Please sign and return to therapist. Thank you for your referral.
== END 2024-11-29 10:37 | disposition home or self-care (01) ==
LOC: HO.PTCHIC 10:00
PROVIDERS: PCP Internal Medicine; Visit Provider Physician Assistant
DX: S42.201S Unspecified fracture of upper end of right humerus, sequela (principal)
CPT/HCPCS: 97110; 97162